=== PATIENT | male | born 1935 | race Caucasian/White ===

== ENCOUNTER 2019-09-15 15:20 | Outpatient (CLI) | payer MEDICARE, SELFPAY ==
[2019-09-15] MEDS: epoetin alfa 40,000 Unit/mL INJ (non-esrd, onc only) 40000 UNIT XX (16:25)
--- NOTE | 2019-09-19 06:38 | ONC FU_ITS ---
Dr. Vaughn Patient Follow-Up Note Patient: Oneil Hinson Unit #: [id number]: [id number] Dicatated By: David Vaughn M.D.Date of Visit:Sep 15, 2019 Onc Med Follow-up/Prog Note Chief Complaint: Chronic myeloid leukemia. History of Present Illness: This is an 84 year-old man with Green chromosome positive chronic myeloid leukemia. The leukemia was initially diagnosed in August 2002. He had a very good response to treatment with imatinib. During followup his quantitative PCR studies for the BCR/abl fusion have remained undetectable. His other medical illnesses have included hypertension and stage IV chronic kidney disease. He has had a mild chronic anemia. The anemia had been responsive to treatment with Procrit, but he eventually was able to maintain an adequate hemoglobin level without it. He also has degenerative disease of the spine, and he underwent lumbar laminectomy for ruptured disc in October 2013. His symptoms initially improved, but then recurred. He underwent reexploration with bilateral L4-L5 hemilaminectomy laminectomy/discectomy/foraminectomy on 07/17/2014. On 04/30/2017 he underwent placement of a spinal cord stimulator, as he continued to have significant back pain. He has continued treatment with imatinib for the CML. As of his follow-up visit on 12/28/2017 he quantitative PCR for BCR/abl remained undetectable. He was seen for a scheduled visit on 03/30/2018. At that point he had been showing some further decline in his activity tolerance. His hemoglobin was down to 9.5 g. I had recommended that he stop the imatinib. His subsequent serum iron studies showed low transferrin saturation at 16% with ferritin in the low normal range at 92 ng/mL. MMA level was normal. He started an oral iron supplement. On 04/13/2018 he was admitted to the hospital for IV hydration in preparation for a lower extremity arterial vascular procedure. His laboratory studies on 04/14/2018 showed creatinine down to 1.5 mg/dL. His hemoglobin, though, had dropped to 7.1 g. The procedure was abandoned, and he returned here for an infusion of Injectafer. He experienced no acute toxicity. However, on 04/16/2018 he presented to the emergency room with shortness of breath. He was found to be in atrial fibrillation. Chest x-ray showed new small bilateral pleural effusions with interval cardiomegaly and/or pericardial effusion. Echocardiogram showed normal left ventricular systolic function with estimated ejection fraction of 55%. There was grade 1/4 diastolic dysfunction. Overall, the findings were felt to be consistent with acute congestive failure. He was treated with IV Lasix and he was transfused 1 unit of PRBC. He was able to be discharged the following day. Several of his other medications were adjusted, including the Coreg and the aspirin. His repeat CBC on 04/18/2018 showed hemoglobin up to 10.5 g with white blood cell count 6400 and platelet count 144,000. He continued on close observation, and he eventually was able to complete the arterial stenting procedure to his right leg. During that time his blood counts remained adequate and his quantitative PCR for the BCR/abl fusion remainded undetectable. 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 I had seen him for a follow-up visit on 12/09/2018. He was still mildly anemic, but it was PCR was undetectable, and he continued on observation/expectant management for the CML. During subsequent follow-up he had remained moderately anemic. As of May 2019 I opted to restart Procrit therapy with his target hemoglobin at 10 g. He has been showing a good response. He is seen for a follow-up visit. His energy has generally been better since he restarted the Procrit, though lately he has been feeling more tired again. His ECOG score is 2. He has good appetite. He has no fever or night sweats. He had developed some blisters on his amputation stump, but those healed after he was fitted with a new boot. He is really been feeling pretty good otherwise. He sometimes has shortness of breath. He has not been having chest pain. He has no GI or complaints other than some urinary frequency. He still has some back pain, though it has been much better with the spinal cord stimuator. He has no focal neurologic symptoms. Medications: AmLODIPine Besylate 10 mg (of 10 mg) Tablet Oral daily, Aspirin 1 (81 mg) Tablet Oral daily, Carvedilol 1 Tablet (of 25 mg) Oral b.i.d., Colace 1 Capsule (of 100 mg) Oral b.i.d., Heartburn Relief 1 Tablet Oral b.i.d., hydrALAZINE HCl 1 Tablet (of 25 mg) Oral t.i.d., Magnesium Oxide 1 (400 mg) Capsule Oral daily, Probiotic 1 Capsule Oral daily, Prochlorperazine Maleate 10 mg (of 10 mg) Tablet Oral four times a day PRN, Rosuvastatin Calcium 1 Tablet (of 10 mg) Oral daily, traMADol HCl 1 Tablet (of 50 mg) Oral PRN, Vitamin B12 1 Tablet Oral daily, Vitamin C 1 Tablet Oral daily, estefany 1 Tablet (of 500 mg) Oral daily Allergies: cortisone and ZOFRAN (ODT). Review of Systems: Constitutional - His energy is starting to dwindle and he is feeling tired. He is up and around at home. His appetite is good and his weight is stable. No fever, chills, hot flashes, or night sweats. ECOG score is 2, ENMT - No sinus congestion/drainage. No mouth sores. No sore throat or difficulty swallowing, Hematologic/Lymphatic - He bruises easily, Respiratory - No shortness of breath. No cough. No pleuritic pain or hemoptysis, Cardiovascular - No angina pain. No palpitations, Gastrointestinal - No nausea or vomiting. No heartburn or acid reflux. No diarrhea or constipation. No blood in the stool or black stools, Genitourinary (M) - No dysuria or hematuria. He has urinary frequency. No urgency or incontinence, Musculoskeletal - No joint or bone pain, Integumentary - He did have blisters on his right lower extremity stump due to his prosthesis. He was fitted for a smaller boot and since then his blisters have healed, Neurologic - No headache or dizziness. No numbness/paresthesias or other focal neurologic symptoms, Psychiatric - No anxiety or depression. No insomnia. Vital Signs: Performed on Sep 15, 2019 15:53 Height - 68.00 in Weight - 162.6 lbs (LOW) BSA - 1.87 sq.m BMI - 24.72 Temperature - 97.2 F (LOW) Pulse - 83 /min Respiration - 20 /min BP - 151/78 mm(hg) (HIGH) O2 Sat - 97 % Pain - 0 Physical Examination: Constitutional - He looks pretty good generally, Eyes - Sclerae nonicteric. Conjunctivae clear, ENMT - No lesions noted in the oral cavity, Hematologic/Lymphatic - No cervical, clavicular, or axillary adenopathy, Respiratory - Lungs sound clear, Cardiovascular - Heart rhythm is irregular. There is a II/ systolic murmur. There is no gallop or rub noted, Abdomen - Soft. Liver and spleen are not enlarged. There is no abdominal mass or ascites noted and there is no inguinal adenopathy, Extremities - No edema. He has had a BK amputation on the right, Neurologic - There are no focal neurologic deficits noted. Lab/Imaging: Test performed on Sep 12, 2019 11:14 Ferritin 213 ng/mL Iron, Total 67 mcg/dL Vitamin B12 2000 pg/mL TIBC 296 mcg/dL Glucose 139 mg/dL LDH, Total 180 IU/L BUN 24 mg/dL Creatinine 1.42 mg/dL Cr Clearance (Est) 42.30 mL/min Sodium 136 mmol/L Potassium 3.9 mmol/L Chloride 104 mmol/L CO2 24.8 mmol/L Calcium 8.9 mg/dL Protein, Total 7.6 g/dL Albumin 4.0 g/dL A/G Ratio 1.1 Absolute Value Bilirubin, Total .4 mg/dL Alkaline Phosphatase 108 IU/L AST (SGOT) 15 IU/L ALT (SGPT) 22 IU/L WBC 6.0 10^9/L RBC 2.92 10^12/L HGB 9.6 g/dL HCT 29.3 % MCV 100.3 fl MCH 32.9 pg MCHC 32.8 g/dL RDW 16.3 % Platelet Count 208 10^9/L MPV 10.4 fL Neutrophils (Gran) 3.65 10^9/L Lymphocytes 1.45 10^9/L Monocytes .74 10^9/L Eosinophils .14 10^9/L Basophils .05 10^9/L Manual Lymphocytes 24.0 % Manual Monocytes 12.2 % Manual Eosinophils 2.3 % Manual Basophils 0.8 % Impression: 1. Patient has a Green chromosome positive chronic myeloid leukemia, initially diagnosed in August 2002. By PCR he has had major molecular response on treatment with imatinib, which he has tolerated well. 2. He has a mild, chronic anemia. It is uncertain to what extent the anemia may be due to treatment or to the chronic kidney disease. It has been stable. His other medical illnesses include: 3. Hypertension. 4. Stage III chronic kidney disease. 5. He has degenerative disease of the spine. He had back surgery twice in 2013. 6. He underwent thoracic laminectomy with placement of spinal cord stimulator on 04/30/2017. His chronic myeloid leukemia has been in long-term remission on treatment with imatinib. He has had mild to moderately severe anemia, which I had assumed to be due to the imatinib. As of his follow-up visit on 03/30/2018 there was further decline in his hemoglobin to 9.4 g. At that point I did have him stop imatinib. His subsequent serum iron studies were suggestive of iron deficiency, and he then started an oral iron supplement. Following IV hydration in preparation for lower extremity arterial vascular procedure, there was a further drop in the hemoglobin to 7.1 g. As it appeared likely that at least some component of the anemia was due to iron deficiency, he was given an infusion of Injectafer. He experienced no acute toxicity with the infusion. However, 2 days later he presented to the emergency room with shortness of breath. He was found to be in atrial fibrillation, and his clinical evaluation was consistent with acute congestive heart failure. He was treated with IV Lasix and he was given a transfusion of 1 unit of PRBC. His blood count had renal function had subsequently stabilized, and he was able to complete the arterial stenting procedure to his right leg. He then had some improvement in his blood count and his renal function and there also was improvement in his clinical status. During subsequent follow-up his PCR for the BCR/abl fusion remained undetectable. 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 During follow-up he has continued to have mild to moderately severe anemia. It is presumed to be due to the chronic kidney disease. He restarted treatment with Procrit in May 2019. He has been showing a good response. He otherwise has been stable clinically. His PCR has remained undetectable. Plan: He remians on observation/expectant management for the CML. His CBC will be monitored monthly and he will continue Procrit as needed for the anemia with his target hemoglobin at 10g. I will see him again in 3 months. Signed By: David Vaughn M.D. <<Signature on File>>
== END 2019-09-15 15:21 | disposition home or self-care (01) ==
LOC: ONCMED 15:24
PROVIDERS: Family Provider Family Medicine; Visit Provider Internal Medicine Medical Oncology
DX: C92.11 Chronic myeloid leukemia, BCR/ABL-positive, in remission (principal); I12.9 Hypertensive chronic kidney disease with stage 1 through stage 4 chronic kidney disease, or unspecified chronic kidney disease; N18.4 Chronic kidney disease, stage 4 (severe); D63.1 Anemia in chronic kidney disease; Z98.1 Arthrodesis status; Z79.82 Long term (current) use of aspirin; Z79.01 Long term (current) use of anticoagulants; Z92.25 Personal history of immunosuppression therapy; Z89.511 Acquired absence of right leg below knee
CPT/HCPCS: 96372; 99214; J0885

== ENCOUNTER 2019-10-19 08:00 | Day surgery (SDC) | payer MEDICARE, SELFPAY ==
[2019-10-19 12:41] VITALS: BMI 24.7
--- NOTE | 2019-10-19 12:55 | ECG_ITS ---
Measurements Intervals Archer Rate: 67 P: NM: 0 QRS: 38 QRSD: 120 T: 53 QT: 440 QTc: 467 ATRIAL FIBRILLATION WITH ABERRANT CONDUCTION OR VENTRICULAR PREMATURE COMPLEXES MODERATE INTRAVENTRICULAR CONDUCTION DELAY [110+ ms QRS DURATION] MINIMAL ST DEPRESSION Compared to ECG 11/02/2018 17:50:36 Ventricular premature complex(es) now present Aberrant conduction of supraventricular beat(s) now present Intraventricular conduction delay now present ST (T wave) deviation now present Sinus rhythm no longer present Incomplete right bundle-branch block no longer present T-wave abnormality no longer present Possible ischemia no longer present Electronically Signed On 10-19-2019 13:20:09 DIRECTOR OF RETAIL OPERATIONS by Jillian Anaya M.D. [id number]
--- NOTE | 2019-10-19 13:21 | ANES.PREANE2 ---
Pre-Anesthetic Assessment Pre-Anesthetic Assessment: Height/Weight: Height 1.73 m Weight 73.936 kg Preop Diagnosis: Chronic pain Proposed Procedure: Operation Date: 10/20/19 14:15 Proposed Procedures p SCS battery Removal 61912/M96.1(Not Applicable) - Jose Armando Mercado MD Familial anesthetic complications: None Was Beta Geronimo taken within 24 hours: N/A Social: Social History: No alcohol and No tobacco Exam: Pre-Anes Outpt Exam: alert, oriented x 3, clear to auscultation bilaterally and regular rate & rhythm Airway: Cervical ROM: WNL MP: 2 Dentition: Full Pulmonary: Pulmonary: None reported CV/HEM: CV/HEM: CHF and Murmur Comments: Patient has a fib and bad heart valve it doesn't close : : Chronic renal Insufficiency Comments: stage III Hepatic: Hepatic: None reported GI: GI: None reported Metabolic: Metabolic: None reported Musc/skel: Musc/skel: None reported Neuropsych: Neuropsych: None reported Anesthetic Plan: ASA status: 4 Anesthesia: MAC Risk of > 500 ml blood loss (7ml/kg in children): No Data Anesthesia Cardiac Studies: No Data to Display
[2019-10-20 12:53] VITALS: BP 155/75; PULSE 77; RESP 18; TEMP 36.2; O2SAT 95
[2019-10-20] MEDS: sodium chloride 0.9% 1,000 ML 30 ML IV (13:08)
--- NOTE | 2019-10-20 15:35 | W.PM.OPSUD ---
Surgery/Procedure H&P Update DATE OF PROCEDURE: October 20, 2019 DATE H&P PERFORMED: 10/12/19 H&P UPDATE INFORMATION: I have reviewed H&P completed within last 30 days and H&P to be scanned into chart PREOP DIAGNOSIS: Lumbar postlaminectomy syndrome PRIMARY INDICATION FOR PROCEDURE: Generator site pain PLANNED PROCEDURE: Operation Date: 10/20/19 14:15 Proposed Procedures SCS pulse generator removal 54366/M96.1(Not Applicable) - Jose Armando Mercado MD
--- NOTE | 2019-10-20 15:57 | PM.OP2 ---
 Brief Operative Note: Date of procedure: 10/20/19 Pre-op diagnosis: Lumbar postlaminectomy syndrome Post-op diagnosis: same Procedure Done: Removal of subcutaneous programmable pulse generator Surgeon: Jose Armando Mercado Estimated blood loss (mL): 5 Complications: None Post-op Plan: Home per Ambulatory Surgery protocol Condition: stable Disposition: same day Coding Level of Care Code Acute Ethylbenzene Converter Helper for Tova Cordero
[2019-10-20 16:58] VITALS: BP 153/89; PULSE 82; RESP 18; TEMP 36.3
[2019-10-20 16:59] VITALS: BP 155/74; PULSE 82; RESP 18
--- NOTE | 2019-10-21 11:32 | PM.OP ---
Operative Report Date of procedure: October 20, 2019 Pre-op Diagnosis: Lumbar postlaminectomy syndrome Post-op diagnosis: same Procedure Done: Removal of subcutaneous programmable pulse generator. Specimens removed/disposition: [employer] pulse generator Pathology: other (Stimulator to pathology for gross evaluation only) Surgeon: Jose Armando Mercado Anesthesia: MAC Estimated blood loss (mL): 10 IV fluids (mL): 100 Complications: None Condition: stable Disposition: same day Brief History: The patient is an 84-year-old male with multiple medical issues who had previously undergone a thoracic spinal cord stimulator implantation for management of chronic pain. He carries a diagnosis of lumbar postlaminectomy syndrome. The device was initially beneficial, but use/efficacy of the device diminished over time. He underwent a lower extremity amputation and began to notice pain/irritation at the spinal cord stimulator pulse generator site. After review of the diagnostic and treatment options with the risks/potential benefits/rationale for each, the patient requested to proceed with pulse generator removal in hopes of resolving the generator site pain. Preoperative medical evaluation was obtained. The patient was felt to be of elevated risk, but likely to tolerate the brief procedure if done without general anesthesia. Procedure: After routine preoperative evaluation and informed consent were obtained, the patient was taken to the Operating Room and positioned prone on the operating table. Chest and pelvic bolsters were positioned to ensure the abdomen was decompressed. All pressure points were padded. The patient reported the position to be comfortable. He was maintained under intravenous sedation by Anesthesia personnel. The prior left flank pulse generator placement incision was marked with a skin marker. The posterior thorax/flank area was scrubbed with Betadine and prepped with DuraPrep. Sterile towels and drapes were applied, and an [place] surgical barrier was placed. The proposed left flank incision was infiltrated with 1% Xylocaine with epinephrine. A skin incision was made and carried down into the subcutaneous tissues. The fibrous capsule containing the pulse generator was opened. No abnormal fluid collections were demonstrated. The pulse generator was delivered from the subcutaneous space. The lead - pulse generator interfaces were intact. Setscrews were released and the lead tails were delivered from the ports on the pulse generator. The generator was sent to pathology for gross evaluation. The wound was copiously irrigated with sterile saline and antibiotic areas irrigation. The lead tails were coiled within the subcutaneous space. Hemostasis was ensured with the bipolar electrocautery. Wound closure was performed in multiple layers with 2-0 Vicryl Plus simple operative closure of the scar capsule and deep dermis. Final skin closure was obtained with running subcuticular 3-0 Vicryl Plus. Steri-Strips were applied, and a sterile dressing was placed. He tolerated the procedure well. All sponge, needle and instrument counts were correct at the completion of the procedure.
== END 2019-10-19 09:00 | disposition home or self-care (01) ==
LOC: OR 04-17 12:47
PROVIDERS: PCP Family Medicine; Visit Provider Specialist
PROC: (CPT 63688; principal; 2019-10-20 14:15)
DX: M96.1 Postlaminectomy syndrome, not elsewhere classified (principal); T85.840A Pain due to nervous system prosthetic devices, implants and grafts, initial encounter; Y83.8 Other surgical procedures as the cause of abnormal reaction of the patient, or of later complication, without mention of misadventure at the time of the procedure; N18.3 Chronic kidney disease, stage 3 (moderate)
CPT/HCPCS: 63688; 12345; 88300; 93005; J0690; J2001; J2704; J3490; J7030

== ENCOUNTER 2019-10-19 15:23 | Outpatient (CLI) | payer MEDICARE, SELFPAY ==
[2019-10-19] MEDS: epoetin alfa 40,000 Unit/mL INJ (non-esrd, onc only) 40000 UNIT SUBCUT (16:07)
== END 2019-10-19 15:24 | disposition home or self-care (01) ==
LOC: ONCMED 15:28
PROVIDERS: Family Provider Family Medicine; PCP Family Medicine; Visit Provider Internal Medicine Medical Oncology
DX: D63.1 Anemia in chronic kidney disease (principal); N18.3 Chronic kidney disease, stage 3 (moderate); C92.11 Chronic myeloid leukemia, BCR/ABL-positive, in remission
CPT/HCPCS: 96372; J0885

== ENCOUNTER 2019-11-25 07:54 | Outpatient (RCR) | payer MEDICARE, SELFPAY ==
[2019-11-17 14:48] LABS: Basophils % 0.5 %; Eosinophils # 0.3 10^3/uL (0.0-0.8); Eosinophils % 4.4 %; Hematocrit 27.9 % (42.0-52.0); Hemoglobin 8.9 g/dL (11.7-16.6); Lymphocytes # 0.9 10^3/uL (0.8-4.8); Lymphocytes % 11.7 %; Mean Corpuscular HGB Conc 31.9 g/dL (30.0-36.0); Mean Corpuscular Volume 106.5 fL (80-94); Mean Platelet Volume 10.8 fL (7.4-10.4); Monocytes # 0.9 10^3/uL (0.2-0.9); Monocytes % 11.6 %; Neutrophils # 5.2 10^3/uL (1.8-7.7); Neutrophils % 71.4 %; Nucleated Red Blood Cells % 0 %; Platelet Count 236 10^3/cmm (130-400); Red Blood Count 2.62 10^6/uL (4.1-5.3); Red Cell Distribution Width 15.2 % (12.1-15.1); White Blood Count 7.3 10^3/uL (4.0-10.0)
[2019-11-18] MEDS: epoetin alfa 40,000 Unit/mL INJ (non-esrd, onc only) 40000 UNIT SUBCUT (09:54)
[2019-11-24 10:35] LABS: Basophils % 0.7 %; Eosinophils # 0.3 10^3/uL (0.0-0.8); Eosinophils % 5.6 %; Hematocrit 26.4 % (42.0-52.0); Hemoglobin 8.6 g/dL (11.7-16.6); Mean Corpuscular HGB Conc 32.6 g/dL (30.0-36.0); Mean Corpuscular Hemoglobin 34.4 pg (28.0-34.0); Mean Corpuscular Volume 105.6 fL (80-94); Mean Platelet Volume 10.5 fL (7.4-10.4); Monocytes # 0.9 10^3/uL (0.2-0.9); Monocytes % 14.1 %; Neutrophils # 3.9 10^3/uL (1.8-7.7); Neutrophils % 63.3 %; Nucleated Red Blood Cells % 0 %; Platelet Count 220 10^3/cmm (130-400); Red Cell Distribution Width 15.5 % (12.1-15.1); White Blood Count 6.1 10^3/uL (4.0-10.0)
[2019-11-25] MEDS: diphenhydrAMINE 25 mg Capsule PO (09:10)
[2019-11-25] MEDS: acetaminophen 325 mg Tablet 650 MG PO (09:10)
[2019-11-25 09:11] VITALS: BP 145/58; PULSE 72; RESP 16; TEMP 36.8; O2SAT 97
[2019-11-25 09:26] VITALS: BP 123/59; PULSE 71; RESP 16; TEMP 36.6; O2SAT 94
[2019-11-25] MEDS: prochlorperazine 10 mg Tablet PO (09:29)
[2019-11-25 09:41] VITALS: BP 132/57; PULSE 64; RESP 16; TEMP 36.8; O2SAT 96
[2019-11-25 10:13] VITALS: BP 121/62; PULSE 70; RESP 16; TEMP 36.6; O2SAT 97
[2019-11-25 10:35] VITALS: BP 165/69; PULSE 72; RESP 16; TEMP 36.4; O2SAT 97
[2019-11-25] MEDS: epoetin alfa 40,000 Unit/mL INJ (non-esrd, onc only) 40000 UNIT SUBCUT (11:00)
== END 2019-11-29 23:59 | disposition home or self-care (01) ==
LOC: ONCMED 07:54
PROVIDERS: Nurse Practitioner; Family Provider Family Medicine; PCP Family Medicine; Visit Provider Internal Medicine Medical Oncology
DX: C92.11 Chronic myeloid leukemia, BCR/ABL-positive, in remission (principal); N18.9 Chronic kidney disease, unspecified; D63.1 Anemia in chronic kidney disease; R53.83 Other fatigue; R53.1 Weakness; R06.02 Shortness of breath
CPT/HCPCS: 36430; 85025; 86850; 86900; 86920; 96372; J0885; P9040; Q0164

== ENCOUNTER 2019-12-29 15:25 | Outpatient (RCR) | payer MEDICARE, SELFPAY ==
[2019-12-01 14:51] LABS: Basophils % 0.6 %; Eosinophils # 0.3 10^3/uL (0.0-0.8); Eosinophils % 4.9 %; Hematocrit 32.4 % (42.0-52.0); Hemoglobin 10.3 g/dL (11.7-16.6); Lymphocytes # 1.2 10^3/uL (0.8-4.8); Lymphocytes % 17.8 %; Mean Corpuscular HGB Conc 31.8 g/dL (30.0-36.0); Mean Corpuscular Hemoglobin 33.6 pg (28.0-34.0); Mean Corpuscular Volume 105.5 fL (80-94); Mean Platelet Volume 10.9 fL (7.4-10.4); Monocytes # 0.8 10^3/uL (0.2-0.9); Monocytes % 12.3 %; Neutrophils # 4.3 10^3/uL (1.8-7.7); Neutrophils % 64.3 %; Nucleated Red Blood Cells % 0 %; Platelet Count 233 10^3/cmm (130-400); Red Blood Count 3.07 10^6/uL (4.1-5.3); Red Cell Distribution Width 16.6 % (12.1-15.1); White Blood Count 6.7 10^3/uL (4.0-10.0)
[2019-12-08 09:48] LABS: Basophils # 0.1 10^3/uL (0.0-0.1); Basophils % 1.3 %; Eosinophils # 0.3 10^3/uL (0.0-0.8); Eosinophils % 5.2 %; Hematocrit 33.1 % (42.0-52.0); Hemoglobin 10.6 g/dL (11.7-16.6); Lymphocytes # 0.9 10^3/uL (0.8-4.8); Lymphocytes % 16.3 %; Mean Corpuscular Hemoglobin 32.4 pg (28.0-34.0); Mean Corpuscular Volume 101.2 fL (80-94); Mean Platelet Volume 10.6 fL (7.4-10.4); Monocytes # 0.7 10^3/uL (0.2-0.9); Monocytes % 12.2 %; Neutrophils # 3.5 10^3/uL (1.8-7.7); Neutrophils % 64.8 %; Nucleated Red Blood Cells % 0 %; Platelet Count 233 10^3/cmm (130-400); Red Blood Count 3.27 10^6/uL (4.1-5.3); Red Cell Distribution Width 15.9 % (12.1-15.1); White Blood Count 5.4 10^3/uL (4.0-10.0)
[2019-12-15 10:35] LABS: Basophils # 0.1 10^3/uL (0.0-0.1); Eosinophils # 0.3 10^3/uL (0.0-0.8); Eosinophils % 5.4 %; Hematocrit 30.3 % (42.0-52.0); Hemoglobin 9.8 g/dL (11.7-16.6); Lymphocytes # 1.2 10^3/uL (0.8-4.8); Lymphocytes % 19.8 %; Mean Corpuscular HGB Conc 32.3 g/dL (30.0-36.0); Mean Corpuscular Hemoglobin 33.2 pg (28.0-34.0); Mean Corpuscular Volume 102.7 fL (80-94); Mean Platelet Volume 10.9 fL (7.4-10.4); Monocytes # 0.8 10^3/uL (0.2-0.9); Monocytes % 12.6 %; Neutrophils # 3.6 10^3/uL (1.8-7.7); Nucleated Red Blood Cells % 0 %; Platelet Count 220 10^3/cmm (130-400); Red Blood Count 2.95 10^6/uL (4.1-5.3); Red Cell Distribution Width 15.7 % (12.1-15.1)
[2019-12-15 10:47] LABS: Alanine Aminotransferase 14 U/L (0-41); Albumin Level 4.1 g/dL (3.5-5.2); Alkaline Phosphatase 101 IU/L (40-130); Anion Gap 18.2 (5-19); Aspartate Amino Transferase 22 U/L (0-40); Blood Urea Nitrogen 22 mg/dL (8-23); Calcium 9.7 mg/dL (8.5-10.5); Carbon Dioxide 22 mmol/L (22-29); Chloride 96 mmol/L (98-107); Globulin 2.8 g/dL (1.3-4.6); Glucose 228 mg/dL (65-115); Lactate Dehydrogenase 199 U/L (135-225); Osmolality Calculated 278 mOsm/kg (285-295); Potassium 4.2 mmol/L (3.5-5.1); Sodium 132 mmol/L (136-145); Total Bilirubin 0.4 mg/dL (0.15-1.2); Total Protein 6.9 g/dL (6.6-8.7)
[2019-12-20 17:47] LABS: P190 BCR ALB1 Not Detected; P210 BCR ALB1 Not Detected; Prior Results See Report
[2019-12-22 15:02] LABS: Basophils % 0.5 %; Eosinophils # 0.4 10^3/uL (0.0-0.8); Eosinophils % 6.5 %; Hematocrit 31.5 % (42.0-52.0); Hemoglobin 10.3 g/dL (11.7-16.6); Lymphocytes % 17.4 %; Mean Corpuscular HGB Conc 32.7 g/dL (30.0-36.0); Mean Corpuscular Hemoglobin 33.8 pg (28.0-34.0); Mean Corpuscular Volume 103.3 fL (80-94); Mean Platelet Volume 10.8 fL (7.4-10.4); Monocytes # 0.6 10^3/uL (0.2-0.9); Monocytes % 10.2 %; Neutrophils # 3.9 10^3/uL (1.8-7.7); Neutrophils % 65.1 %; Nucleated Red Blood Cells % 0 %; Platelet Count 208 10^3/cmm (130-400); Red Blood Count 3.05 10^6/uL (4.1-5.3); Red Cell Distribution Width 15.6 % (12.1-15.1)
[2019-12-29 17:58] LABS: Basophils # 0.1 10^3/uL (0.0-0.1); Eosinophils # 0.3 10^3/uL (0.0-0.8); Eosinophils % 4.2 %; Hematocrit 29.6 % (42.0-52.0); Hemoglobin 9.4 g/dL (11.7-16.6); Lymphocytes # 1.6 10^3/uL (0.8-4.8); Lymphocytes % 22.4 %; Mean Corpuscular HGB Conc 31.8 g/dL (30.0-36.0); Mean Corpuscular Hemoglobin 32.2 pg (28.0-34.0); Mean Corpuscular Volume 101.4 fL (80-94); Monocytes # 0.9 10^3/uL (0.2-0.9); Monocytes % 12.5 %; Neutrophils # 4.3 10^3/uL (1.8-7.7); Neutrophils % 59.6 %; Nucleated Red Blood Cells % 0 %; Platelet Count 204 10^3/cmm (130-400); Red Blood Count 2.92 10^6/uL (4.1-5.3); Red Cell Distribution Width 15.5 % (12.1-15.1); White Blood Count 7.2 10^3/uL (4.0-10.0)
== END 2019-12-29 23:59 | disposition home or self-care (01) ==
LOC: ONCMED 15:25
PROVIDERS: Family Provider Family Medicine; PCP Family Medicine; Visit Provider Internal Medicine Medical Oncology
DX: C92.11 Chronic myeloid leukemia, BCR/ABL-positive, in remission (principal); D64.9 Anemia, unspecified
CPT/HCPCS: 36415; 80053; 81206; 83615; 85025

== ENCOUNTER 2020-01-06 08:29 | Outpatient (RCR) | payer MEDICARE, SELFPAY ==
[2019-12-30] MEDS: epoetin alfa 40,000 Unit/mL INJ (non-esrd, onc only) 40000 UNIT SUBCUT (10:20)
[2020-01-05 11:01] LABS: Basophils # 0.1 10^3/uL (0.0-0.1); Basophils % 0.9 %; Eosinophils # 0.3 10^3/uL (0.0-0.8); Eosinophils % 3.7 %; Hematocrit 29.3 % (42.0-52.0); Hemoglobin 9.4 g/dL (11.7-16.6); Lymphocytes # 1.2 10^3/uL (0.8-4.8); Lymphocytes % 17.2 %; Mean Corpuscular HGB Conc 32.1 g/dL (30.0-36.0); Mean Corpuscular Hemoglobin 33.1 pg (28.0-34.0); Mean Corpuscular Volume 103.2 fL (80-94); Mean Platelet Volume 10.8 fL (7.4-10.4); Monocytes # 0.8 10^3/uL (0.2-0.9); Monocytes % 11.3 %; Neutrophils # 4.5 10^3/uL (1.8-7.7); Neutrophils % 66.8 %; Nucleated Red Blood Cells % 0 %; Platelet Count 220 10^3/cmm (130-400); Red Blood Count 2.84 10^6/uL (4.1-5.3); Red Cell Distribution Width 16.5 % (12.1-15.1); White Blood Count 6.8 10^3/uL (4.0-10.0)
[2020-01-06] MEDS: epoetin alfa 40,000 Unit/mL INJ (non-esrd, onc only) 40000 UNIT SUBCUT (12:50)
--- NOTE | 2020-01-07 20:50 | ONC FU_ITS ---
Dr. Vaughn Patient Follow-Up Note Patient: Oneil Hinson Unit #: [id number]: 1935 Dicatated By: David Vaughn M.D.Date of Visit:January 06, 2020 Onc Med Follow-up/Prog Note Chief Complaint: Chronic myeloid leukemia. History of Present Illness: This is an 84 year-old man with Chambers chromosome positive chronic myeloid leukemia. The leukemia was initially diagnosed in August 2002. He had a very good response to treatment with imatinib. During followup his quantitative PCR studies for the BCR/abl fusion had remained undetectable, and he stopped the imatinib as of February 2018. His other medical illnesses have included hypertension, stage IV chronic kidney disease, and peripheral arterial disease. He has had a mild chronic anemia. In the past the anemia had been responsive to treatment with Procrit, but he eventually had been able to maintain an adequate hemoglobin level without it. He also has degenerative disease of the spine, and he underwent lumbar laminectomy for ruptured disc in October 2013. His symptoms initially improved, but then recurred. He underwent reexploration with bilateral L4-L5 hemilaminectomy laminectomy/discectomy/foraminectomy on 07/17/2014. On 04/30/2017 he underwent placement of a spinal cord stimulator, as he continued to have significant back pain. As of his follow-up visit on 12/28/2017 the quantitative PCR for BCR/abl remained undetectable. He was seen for a scheduled visit on 03/30/2018. At that point he had been showing some further decline in his activity tolerance. His hemoglobin was down to 9.5 g. I had recommended that he stop the imatinib. His subsequent serum iron studies showed low transferrin saturation at 16% with ferritin in the low normal range at 92 ng/mL. MMA level was normal. He started an oral iron supplement. On 04/13/2018 he was admitted to the hospital for IV hydration in preparation for a lower extremity arterial vascular procedure. His laboratory studies on 04/14/2018 showed creatinine down to 1.5 mg/dL. His hemoglobin, though, had dropped to 7.1 g. The procedure was abandoned, and he returned here for an infusion of Injectafer. He experienced no acute toxicity. However, on 04/16/2018 he presented to the emergency room with shortness of breath. He was found to be in atrial fibrillation. Chest x-ray showed new small bilateral pleural effusions with interval cardiomegaly and/or pericardial effusion. Echocardiogram showed normal left ventricular systolic function with estimated ejection fraction of 55%. There was grade 1/4 diastolic dysfunction. Overall, the findings were felt to be consistent with acute congestive failure. He was treated with IV Lasix and he was transfused 1 unit of PRBC. He was able to be discharged the following day. Several of his other medications were adjusted, including the Coreg and the aspirin. His repeat CBC on 04/18/2018 showed hemoglobin up to 10.5 g with white blood cell count 6400 and platelet count 144,000. He continued on close observation, and he eventually was able to complete the arterial stenting procedure to his right leg. During that time his blood counts remained adequate and his quantitative PCR for the BCR/abl fusion remainded undetectable. 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 I had seen him for a follow-up visit on 12/09/2018. He was still mildly anemic, but it was PCR was undetectable, and he continued on observation/expectant management for the CML. During subsequent follow-up he had remained moderately anemic. As of May 2019 I opted to restart Procrit therapy with his target hemoglobin at 10 g. He has had a good response. As of November 2019 the PCR for BCR/abl remained undetectable. He is seen for a follow-up visit. He has continued to have limited activity. His ECOG score is 2. He has good appetite. He has not had fever or night sweats. Lately he has been having ongoing problems with swelling in his left leg. He had started furosemide about a month ago when he was having more shortness of breath. His diuretic recently was changed to spironolactone. His breathing did improve somewhat with the furosemide. He has not had chest pain. He has no GI/ complaints other than occasional heartburn. He is having some pain in his left leg. He sometimes has lightheadedness. He has no focal neurologic symptoms. Medications: AmLODIPine Besylate 10 mg (of 10 mg) Tablet Oral daily, Aspirin 1 (81 mg) Tablet Oral daily, Carvedilol 1 Tablet (of 25 mg) Oral b.i.d., Colace 1 Capsule (of 100 mg) Oral b.i.d., Heartburn Relief 1 Tablet Oral b.i.d., hydrALAZINE HCl 1 Tablet (of 25 mg) Oral t.i.d., Magnesium Oxide 1 (400 mg) Capsule Oral daily, Multivitamin Adult 1 Tablet Oral daily, Probiotic 1 Capsule Oral daily, Prochlorperazine Maleate 10 mg (of 10 mg) Tablet Oral four times a day PRN, Rosuvastatin Calcium 1 Tablet (of 10 mg) Oral daily, Spironolactone 0.5 Tablet (of 25 mg) Oral b.i.d., Vitamin B12 1 Tablet Oral daily, Vitamin C 1 Tablet Oral daily, estefany 1 Tablet (of 500 mg) Oral daily Allergies: cortisone and ZOFRAN (ODT). Review of Systems: Constitutional - He is feeling okay, though his energy level is low. He is not doing much at home. He uses a cane to ambulate. His appetite is good and weight is up about 5 pounds from August visit. No fever, chills, hot flashes, or night sweats. ECOG score is 2, ENMT - He has seasonal allergies. No mouth sores. No sore throat or difficulty swallowing. He wears hearing aids, Hematologic/Lymphatic - No abnormal bruising or bleeding, Respiratory - He was having increase in shortness of breath about one month and was placed on Lasix. No cough. No pleuritic pain or hemoptysis, Cardiovascular - No angina pain. No palpitations, Gastrointestinal - No nausea or vomiting. He has occasional heartburn depending on what he eats. No diarrhea or constipation. No blood in the stool or black stools, Genitourinary (M) - No dysuria or hematuria. He has urinary frequency both day and night. No urgency or incontinence, Musculoskeletal - He has pain in his legs, which he manages with tramadol, Integumentary - He is having swelling in his left leg, Neurologic - No headache. He is having lightheadedness. No numbness/paresthesias or other focal neurologic symptoms, Psychiatric - No anxiety or depression. He does not sleep well. Vital Signs: Performed on January 06, 2020 12:21 Height - 68.00 in Weight - 167.2 lbs (HIGH) BSA - 1.89 sq.m BMI - 25.42 Temperature - 97.9 F (LOW) Pulse - 77 /min Respiration - 22 /min BP - 170/70 mm(hg) (HIGH) O2 Sat - 97 % Pain - 0 Physical Examination: Constitutional - He looks pretty good generally, Eyes - Sclerae nonicteric. Conjunctivae clear, ENMT - No lesions noted in the oral cavity, Hematologic/Lymphatic - No cervical, clavicular, or axillary adenopathy, Respiratory - Lungs sound clear, Cardiovascular - Heart rhythm is irregular. There is a II/ systolic murmur. There is no gallop or rub noted, Abdomen - Soft. Liver and spleen are not enlarged. 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 There is 2+ edema of the left leg, fairly tense. He has a palpable dorsalis pedis pulse on the left, and the left foot is warm to touch, Neurologic - There are no focal neurologic deficits noted. Lab/Imaging: Test performed on January 05, 2020 08:40 WBC 6.8 10 3/uL RBC 2.84 10 6/uL HGB 9.4 g/dL HCT 29.3 % MCV 103.2 fL MCH 33.1 pg MCHC 32.1 g/dL RDW 16.5 % Platelet Count 220 10 3/cmm MPV 10.8 fL Neutrophils 4.5 10 3/uL Lymphocytes 1.2 10 3/uL Monocytes 0.8 10 3/uL Eosinophils 0.3 10 3/uL Basophils 0.1 10 3/uL Neutrophil % 66.8 % Lymphocyte % 17.2 % Monocyte % 11.3 % Eosinophil % 3.7 % Basophils % 0.9 % Impression: 1. Patient has a Chambers chromosome positive chronic myeloid leukemia, initially diagnosed in August 2002. By PCR he had major molecular response on treatment with imatinib, which he had tolerated well. 2. He has a mild, chronic anemia. It is uncertain to what extent the anemia may be due to treatment or to the chronic kidney disease. It has been stable. His other medical illnesses include: 3. Hypertension. 4. Stage III chronic kidney disease. 5. He has degenerative disease of the spine. He had back surgery twice in 2013. 6. He underwent thoracic laminectomy with placement of spinal cord stimulator on 04/30/2017. His chronic myeloid leukemia has been in long-term remission on treatment with imatinib. He has had mild to moderately severe anemia, which I had assumed to be due to the imatinib. As of his follow-up visit on 03/30/2018 there was further decline in his hemoglobin to 9.4 g. At that point I did have him stop imatinib. His subsequent serum iron studies were suggestive of iron deficiency, and he then started an oral iron supplement. Following IV hydration in preparation for lower extremity arterial vascular procedure, there was a further drop in the hemoglobin to 7.1 g. As it appeared likely that at least some component of the anemia was due to iron deficiency, he was given an infusion of Injectafer. He experienced no acute toxicity with the infusion. However, 2 days later he presented to the emergency room with shortness of breath. He was found to be in atrial fibrillation, and his clinical evaluation was consistent with acute congestive heart failure. He was treated with IV Lasix and he was given a transfusion of 1 unit of PRBC. His blood count had renal function had subsequently stabilized, and he was able to complete the arterial stenting procedure to his right leg. He then had some improvement in his blood count and his renal function and there also was improvement in his clinical status. During subsequent follow-up his PCR for the BCR/abl fusion remained undetectable. 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 During follow-up he has continued to have mild to moderately severe anemia. It is presumed to be due to the chronic kidney disease. He restarted treatment with Procrit in May 2019. He has been showing a good response. His PCR has remained undetectable. However, he has had ongoing problems related to his vascular disease and congestive heart failure, and the recently has been having persistent swelling in the left leg. He continues have very limited activity. Plan: He remians on observation/expectant management for the CML. His CBC will be monitored weekly and he will continue Procrit as needed for the anemia with his target hemoglobin at 10g. I will see him again in 3 months. Signed By: David Vaughn M.D. <<Signature on File>>
== END 2020-01-29 23:59 | disposition home or self-care (01) ==
LOC: ONCMED 08:29
PROVIDERS: Internal Medicine Hematology & Oncology; PCP Family Medicine; Visit Provider Internal Medicine Medical Oncology
DX: C92.11 Chronic myeloid leukemia, BCR/ABL-positive, in remission (principal); D63.1 Anemia in chronic kidney disease; N18.3 Chronic kidney disease, stage 3 (moderate); I10 Essential (primary) hypertension; E78.5 Hyperlipidemia, unspecified; M47.9 Spondylosis, unspecified; Z79.899 Other long term (current) drug therapy
CPT/HCPCS: 85025; 96372; 99214; J0885

== ENCOUNTER 2020-02-16 13:43 | Outpatient (RCR) | payer MEDICARE, SELFPAY ==
[2020-02-16] MEDS: epoetin alfa 40,000 Unit/mL INJ (non-esrd, onc only) 40000 UNIT SUBCUT (14:31)
== END 2020-02-28 23:59 | disposition home or self-care (01) ==
LOC: ONCMED 13:43
PROVIDERS: PCP Family Medicine; Visit Provider Internal Medicine Medical Oncology
DX: C92.11 Chronic myeloid leukemia, BCR/ABL-positive, in remission (principal); N18.9 Chronic kidney disease, unspecified; D63.1 Anemia in chronic kidney disease
CPT/HCPCS: 96372; J0885

== ENCOUNTER 2020-03-22 06:50 | Outpatient (RCR) | payer MEDICARE, SELFPAY ==
[2020-03-22 13:35] LABS: Basophils # 0.1 10^3/uL (0.0-0.1); Basophils % 0.9 %; Eosinophils # 0.3 10^3/uL (0.0-0.8); Eosinophils % 3.3 %; Hematocrit 33.3 % (42.0-52.0); Hemoglobin 11.3 g/dL (11.7-16.6); Lymphocytes # 1.9 10^3/uL (0.8-4.8); Lymphocytes % 24.4 %; Mean Corpuscular HGB Conc 33.9 g/dL (30.0-36.0); Mean Corpuscular Volume 103.1 fL (80-94); Mean Platelet Volume 10.1 fL (7.4-10.4); Monocytes # 0.8 10^3/uL (0.2-0.9); Monocytes % 9.8 %; Neutrophils # 4.76 10^3/uL (1.8-7.7); Neutrophils % 60.8 %; Nucleated Red Blood Cells % 0 %; Platelet Count 249 10^3/cmm (130-400); Red Blood Count 3.23 10^6/uL (4.1-5.3); White Blood Count 7.8 10^3/uL (4.0-10.0)
[2020-03-22 13:44] LABS: Alanine Aminotransferase 22 U/L (0-41); Albumin Level 4.6 g/dL (3.5-5.2); Alkaline Phosphatase 106 IU/L (40-130); Anion Gap 17.6 (5-19); Aspartate Amino Transferase 23 U/L (0-40); Blood Urea Nitrogen 40 mg/dL (8-23); Calcium 9.7 mg/dL (8.5-10.5); Carbon Dioxide 21 mmol/L (22-29); Chloride 92 mmol/L (98-107); Globulin 3.1 g/dL (1.3-4.6); Glucose 147 mg/dL (65-115); Lactate Dehydrogenase 176 U/L (135-225); Osmolality Calculated 262 mOsm/kg (285-295); Potassium 4.6 mmol/L (3.5-5.1); Sodium 126 mmol/L (136-145); Total Bilirubin 0.2 mg/dL (0.15-1.2); Total Protein 7.7 g/dL (6.6-8.7)
--- NOTE | 2020-03-22 20:23 | ONC FU_ITS ---
Dr. Vaughn Patient Follow-Up Note Patient: Oneil Hinson Unit #: [id number]: [id number] Dicatated By: David Vaughn M.D.Date of Visit:Mar 22, 2020 Onc Med Follow-up/Prog Note Chief Complaint: Chronic myeloid leukemia. History of Present Illness: This is an 85 year-old man with Tuckerman chromosome positive chronic myeloid leukemia. The leukemia was initially diagnosed in August 2002. He had a very good response to treatment with imatinib. During followup his quantitative PCR studies for the BCR/abl fusion had remained undetectable, and he stopped the imatinib as of February 2018. His other medical illnesses have included hypertension, stage IV chronic kidney disease, and peripheral arterial disease. He has had a mild chronic anemia. In the past the anemia had been responsive to treatment with Procrit, but he eventually had been able to maintain an adequate hemoglobin level without it. He also has degenerative disease of the spine, and he underwent lumbar laminectomy for ruptured disc in October 2013. His symptoms initially improved, but then recurred. He underwent reexploration with bilateral L4-L5 hemilaminectomy laminectomy/discectomy/foraminectomy on 07/17/2014. On 04/30/2017 he underwent placement of a spinal cord stimulator, as he continued to have significant back pain. As of his follow-up visit on 12/28/2017 the quantitative PCR for BCR/abl remained undetectable. He was seen for a scheduled visit on 03/30/2018. At that point he had been showing some further decline in his activity tolerance. His hemoglobin was down to 9.5 g. I had recommended that he stop the imatinib. His subsequent serum iron studies showed low transferrin saturation at 16% with ferritin in the low normal range at 92 ng/mL. MMA level was normal. He started an oral iron supplement. On 04/13/2018 he was admitted to the hospital for IV hydration in preparation for a lower extremity arterial vascular procedure. His laboratory studies on 04/14/2018 showed creatinine down to 1.5 mg/dL. His hemoglobin, though, had dropped to 7.1 g. The procedure was abandoned, and he returned here for an infusion of Injectafer. He experienced no acute toxicity. However, on 04/16/2018 he presented to the emergency room with shortness of breath. He was found to be in atrial fibrillation. Chest x-ray showed new small bilateral pleural effusions with interval cardiomegaly and/or pericardial effusion. Echocardiogram showed normal left ventricular systolic function with estimated ejection fraction of 55%. There was grade 1/4 diastolic dysfunction. Overall, the findings were felt to be consistent with acute congestive failure. He was treated with IV Lasix and he was transfused 1 unit of PRBC. He was able to be discharged the following day. Several of his other medications were adjusted, including the Coreg and the aspirin. His repeat CBC on 04/18/2018 showed hemoglobin up to 10.5 g with white blood cell count 6400 and platelet count 144,000. He continued on close observation, and he eventually was able to complete the arterial stenting procedure to his right leg. During that time his blood counts remained adequate and his quantitative PCR for the BCR/abl fusion remainded undetectable. 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 I had seen him for a follow-up visit on 12/09/2018. He was still mildly anemic, but it was PCR was undetectable, and he continued on observation/expectant management for the CML. During subsequent follow-up he had remained moderately anemic. As of May 2019 I opted to restart Procrit therapy with his target hemoglobin at 10 g. He has had a good response. As of November 2019 the PCR for BCR/abl remained undetectable. He is seen for a follow-up visit. He has been feeling pretty good generally. His energy is pretty fair. He is up and around and he is able to do a little bit of light work. ECOG score is 2. He has good appetite. He has no fever or night sweats. He is sometimes short of breath, and recently he had increased swelling. It has improved with a diuretic. He has not been having chest pain. He was evaluated with a stress test yesterday. He has no GI or complaints other than some occasional heartburn. He has aching pain in his legs. He has no focal neurologic symptoms. Medications: AmLODIPine Besylate 10 mg (of 10 mg) Tablet Oral daily, Aspirin 1 (81 mg) Tablet Oral daily, Carvedilol 1 Tablet (of 25 mg) Oral b.i.d., Heartburn Relief 1 Tablet Oral b.i.d., hydrALAZINE HCl 1 Tablet (of 25 mg) Oral t.i.d., Multivitamin Adult 1 Tablet Oral daily, Probiotic 1 Capsule Oral daily, Prochlorperazine Maleate 10 mg (of 10 mg) Tablet Oral four times a day PRN, Rosuvastatin Calcium 1 Tablet (of 10 mg) Oral daily, Vitamin B12 1 Tablet Oral daily, Vitamin C 1 Tablet Oral daily, estefany 1 Tablet (of 500 mg) Oral daily Allergies: cortisone and ZOFRAN (ODT). Review of Systems: Constitutional - He has been feeling pretty fair. His energy is better. He is up and around and able to do a little bit of light work. His appetite is good and weight is down about 7 pounds from last visit. No fever, night sweats, or hot flashes. ECOG score is 2, ENMT - No sinus congestion/drainage. No mouth sores. No sore throat or difficulty swallowing, Hematologic/Lymphatic - No abnormal bruising or bleeding, Respiratory - He has been having increased shortness of breath. No cough. No pleuritic pain or hemoptysis, Cardiovascular - No angina pain. No palpitations, Gastrointestinal - No nausea or vomiting. He has occasional heartburn. No diarrhea or constipation. No blood in the stool or black stools, Genitourinary (M) - No dysuria or hematuria. No urinary frequency. No urgency or incontinence, Musculoskeletal - He has pain in his legs,described this as an aching pain, Integumentary - No skin complications, Neurologic - No headache. He has occasional dizziness with positional changes. No numbness or tingling. No other focal neurologic symptoms, Psychiatric - No anxiety or depression. He does not sleep well. Vital Signs: Performed on Mar 22, 2020 13:39 Height - 68.00 in Weight - 160.8 lbs (LOW) BSA - 1.86 sq.m BMI - 24.45 Temperature - 98.1 F (LOW) Pulse - 74 /min Respiration - 22 /min BP - 143/64 mm(hg) (HIGH) O2 Sat - 97 % Pain - 5 Physical Examination: Constitutional - He looks pretty good generally, Eyes - Sclerae nonicteric. Conjunctivae clear, ENMT - No lesions noted in the oral cavity, Hematologic/Lymphatic - No cervical, clavicular, or axillary adenopathy, Respiratory - Lungs sound clear, Cardiovascular - Heart rhythm appears regular. There is a II/ systolic murmur. There is no gallop or rub noted, Abdomen - Soft. Liver and spleen are not enlarged. 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 There is just mild edema of the left leg, Neurologic - There are no focal neurologic deficits noted. Lab/Imaging: Test performed on Mar 22, 2020 12:35 LDH (Total) 176 U/L Sodium 126 mmol/L Potassium 4.6 mmol/L Chloride 92 mmol/L CO2 21 mmol/L Anion Gap 17.6 BUN 40 mg/dL Creatinine 1.9 mg/dL Cr Clearance (Est) 30.3900 mL/min Glucose 147 mg/dL Calcium 9.7 mg/dL Protein, Total 7.7 g/dL Albumin 4.6 g/dL Globulin 3.1 g/dL Bilirubin, Total 0.2 mg/dL ALT (SGPT) 22 U/L AST (SGOT) 23 U/L Alkaline Phosphatase 106 IU/L WBC 7.8 10 3/uL RBC 3.23 10 6/uL HGB 11.3 g/dL HCT 33.3 % MCV 103.1 fL MCH 35.0 pg MCHC 33.9 g/dL RDW 15.0 % Platelet Count 249 10 3/cmm MPV 10.1 fL Neutrophils 4.76 10 3/uL Lymphocytes 1.9 10 3/uL Monocytes 0.8 10 3/uL Eosinophils 0.3 10 3/uL Basophils 0.1 10 3/uL Neutrophil % 60.8 % Lymphocyte % 24.4 % Monocyte % 9.8 % Eosinophil % 3.3 % Basophils % 0.9 % NRBC % 0 % Impression: 1. Patient has a Tuckerman chromosome positive chronic myeloid leukemia, initially diagnosed in August 2002. By PCR he had major molecular response on treatment with imatinib, which he had tolerated well. 2. He has a mild, chronic anemia. It is uncertain to what extent the anemia may be due to treatment or to the chronic kidney disease. It has been stable. His other medical illnesses include: 3. Hypertension. 4. Stage III chronic kidney disease. 5. He has degenerative disease of the spine. He had back surgery twice in 2013. 6. He underwent thoracic laminectomy with placement of spinal cord stimulator on 04/30/2017. His chronic myeloid leukemia has been in long-term remission on treatment with imatinib. He has had mild to moderately severe anemia, which I had assumed to be due to the imatinib. As of his follow-up visit on 03/30/2018 there was further decline in his hemoglobin to 9.4 g. At that point I did have him stop imatinib. His subsequent serum iron studies were suggestive of iron deficiency, and he then started an oral iron supplement. Following IV hydration in preparation for lower extremity arterial vascular procedure, there was a further drop in the hemoglobin to 7.1 g. As it appeared likely that at least some component of the anemia was due to iron deficiency, he was given an infusion of Injectafer. He experienced no acute toxicity with the infusion. However, 2 days later he presented to the emergency room with shortness of breath. He was found to be in atrial fibrillation, and his clinical evaluation was consistent with acute congestive heart failure. He was treated with IV Lasix and he was given a transfusion of 1 unit of PRBC. His blood count had renal function had subsequently stabilized, and he was able to complete the arterial stenting procedure to his right leg. He then had some improvement in his blood count and his renal function and there also was improvement in his clinical status. During subsequent follow-up his PCR for the BCR/abl fusion remained undetectable. 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 During follow-up he has continued to have mild to moderately severe anemia. It is presumed to be due to the chronic kidney disease. He restarted treatment with Procrit in May 2019. He has been showing a good response. He has ongoing problems related to his underlying cardiovascular disease, but his PCR has remained undetectable. Plan: He remians on observation/expectant management for the CML. His CBC will now be monitored every 2 weeks. He will continue Procrit as needed for the anemia with his target hemoglobin at 10g. I will see him again in 3 months. Signed By: David Vaughn M.D. <<Signature on File>>
[2020-03-27 12:55] LABS: P190 BCR ALB1 Not Detected; P210 BCR ALB1 Not Detected; Prior Results See Report
== END 2020-03-30 23:59 | disposition home or self-care (01) ==
LOC: ONCMED 06:50
PROVIDERS: PCP Family Medicine; Visit Provider Internal Medicine Medical Oncology
DX: Z08 Encounter for follow-up examination after completed treatment for malignant neoplasm (principal); C92.11 Chronic myeloid leukemia, BCR/ABL-positive, in remission; I12.9 Hypertensive chronic kidney disease with stage 1 through stage 4 chronic kidney disease, or unspecified chronic kidney disease; N18.3 Chronic kidney disease, stage 3 (moderate); D63.1 Anemia in chronic kidney disease; Z92.21 Personal history of antineoplastic chemotherapy
CPT/HCPCS: 36415; 80053; 81206; 83615; 85025; 99214

== ENCOUNTER 2020-04-20 08:45 | Outpatient (RCR) | payer MEDICARE, SELFPAY ==
[2020-04-20] MEDS: epoetin alfa 40,000 Unit/mL INJ (non-esrd, onc only) 40000 UNIT SUBCUT (10:54)
== END 2020-04-30 23:59 | disposition home or self-care (01) ==
LOC: ONCMED 08:45
PROVIDERS: PCP Family Medicine; Visit Provider Nurse Practitioner
DX: C92.11 Chronic myeloid leukemia, BCR/ABL-positive, in remission (principal); N18.3 Chronic kidney disease, stage 3 (moderate); D63.1 Anemia in chronic kidney disease; I10 Essential (primary) hypertension; E78.5 Hyperlipidemia, unspecified
CPT/HCPCS: 96372; J0885

== ENCOUNTER 2020-06-25 10:18 | Outpatient (CLI) | payer MEDICARE, SELFPAY ==
[2020-06-25] MEDS: epoetin alfa 40,000 Unit/mL INJ (non-esrd, onc only) 40000 UNIT SUBCUT (11:50)
== END 2020-06-25 10:19 | disposition home or self-care (01) ==
PROVIDERS: PCP Family Medicine; Visit Provider Nurse Practitioner
DX: N18.30 Chronic kidney disease, stage 3 unspecified (principal); D63.1 Anemia in chronic kidney disease; C92.11 Chronic myeloid leukemia, BCR/ABL-positive, in remission
CPT/HCPCS: 96372; J0885

== ENCOUNTER 2020-07-05 05:56 | Outpatient (CLI) | payer MEDICARE, SELFPAY ==
--- NOTE | 2020-07-07 17:07 | ONC FU_ITS ---
Dr. Vaughn Patient Follow-Up Note Patient: Oneil Hinson Unit #: [id number]: 1935 Dicatated By: David Vaughn M.D.Date of Visit:Jul 05, 2020 Onc Med Follow-up/Prog Note Chief Complaint: Chronic myeloid leukemia. History of Present Illness: This is an 85 year-old man with Bent chromosome positive chronic myeloid leukemia. The leukemia was initially diagnosed in August 2002. He had a very good response to treatment with imatinib. During followup his quantitative PCR studies for the BCR/abl fusion had remained undetectable, and he stopped the imatinib as of February 2018. His other medical illnesses have included hypertension, stage IV chronic kidney disease, and peripheral arterial disease. He has had a mild chronic anemia. In the past the anemia had been responsive to treatment with Procrit, but he eventually had been able to maintain an adequate hemoglobin level without it. He also has degenerative disease of the spine, and he underwent lumbar laminectomy for ruptured disc in October 2013. His symptoms initially improved, but then recurred. He underwent reexploration with bilateral L4-L5 hemilaminectomy laminectomy/discectomy/foraminectomy on 07/17/2014. On 04/30/2017 he underwent placement of a spinal cord stimulator, as he continued to have significant back pain. As of his follow-up visit on 12/28/2017 the quantitative PCR for BCR/abl remained undetectable. He was seen for a scheduled visit on 03/30/2018. At that point he had been showing some further decline in his activity tolerance. His hemoglobin was down to 9.5 g. I had recommended that he stop the imatinib. His subsequent serum iron studies showed low transferrin saturation at 16% with ferritin in the low normal range at 92 ng/mL. MMA level was normal. He started an oral iron supplement. On 04/13/2018 he was admitted to the hospital for IV hydration in preparation for a lower extremity arterial vascular procedure. His laboratory studies on 04/14/2018 showed creatinine down to 1.5 mg/dL. His hemoglobin, though, had dropped to 7.1 g. The procedure was abandoned, and he returned here for an infusion of Injectafer. He experienced no acute toxicity. However, on 04/16/2018 he presented to the emergency room with shortness of breath. He was found to be in atrial fibrillation. Chest x-ray showed new small bilateral pleural effusions with interval cardiomegaly and/or pericardial effusion. Echocardiogram showed normal left ventricular systolic function with estimated ejection fraction of 55%. There was grade 1/4 diastolic dysfunction. Overall, the findings were felt to be consistent with acute congestive failure. He was treated with IV Lasix and he was transfused 1 unit of PRBC. He was able to be discharged the following day. Several of his other medications were adjusted, including the Coreg and the aspirin. His repeat CBC on 04/18/2018 showed hemoglobin up to 10.5 g with white blood cell count 6400 and platelet count 144,000. He continued on close observation, and he eventually was able to complete the arterial stenting procedure to his right leg. During that time his blood counts remained adequate and his quantitative PCR for the BCR/abl fusion remainded undetectable. Unfortunately, during subsequent follow-up he continued to have evidence of arterial insufficiency to the right leg, and he ultimately underwent BK amputation in [place]. I had seen him for a follow-up visit on 12/09/2018. He was still mildly anemic, but it was PCR was undetectable, and he continued on observation/expectant management for the CML. During subsequent follow-up he had remained moderately anemic. As of May 2019 I opted to restart Procrit therapy with his target hemoglobin at 10 g. He has had a good response. As of February 2020 the PCR for BCR/abl remained undetectable. He is seen for a follow-up visit. He has been feeling pretty good generally. He still has limited activity, but he has been doing more walking, and he is able to do some light work. His ECOG score is 2. Appetite is good. He has no fever or night sweats. He is short of breath with activity. He does not complain of cough and he has not been having chest pain. He has no GI/ complaints other than some heartburn, but he did stop taking his antacid medication. He still has some back pain and he still has some pain in the lower extremities. His pain is being managed adequately with tramadol and medical marijuana. The marijuana also is helping him sleep better at night. He does not complain of headache, and he has no focal neurologic symptoms. Medications: AmLODIPine Besylate 10 mg (of 10 mg) Tablet Oral daily, Aspirin 1 (81 mg) Tablet Oral daily, Carvedilol 1 Tablet (of 25 mg) Oral b.i.d., Heartburn Relief 1 Tablet Oral b.i.d., hydrALAZINE HCl 1 Tablet (of 25 mg) Oral t.i.d., Magnesium Oxide 1 (400 mg) Capsule Oral daily, Multivitamin Adult 1 Tablet Oral daily, Prochlorperazine Maleate 10 mg (of 10 mg) Tablet Oral four times a day PRN, Rosuvastatin Calcium 1 Tablet (of 10 mg) Oral daily, Vitamin C 1 Tablet Oral daily Allergies: cortisone and ZOFRAN (ODT). Review of Systems: Constitutional - He generally feels pretty good, though he does have limited activity. He is walking more, and he is able to do some light work. His appetite is good and his weight is stable. No fever, night sweats, or hot flashes. ECOG score is 2, ENMT - No sinus congestion/drainage. No mouth sores. No sore throat or difficulty swallowing, Hematologic/Lymphatic - He bruises easily, Respiratory - He gets short of breath with activity. No cough. No pleuritic pain or hemoptysis, Cardiovascular - No angina pain. No palpitations, Gastrointestinal - No nausea or vomiting. He has intermittent heartburn. He did stop his anti-acids. No diarrhea or constipation. No blood in the stool or black stools, Genitourinary (M) - No dysuria or hematuria. No urinary frequency. No urgency or incontinence, Musculoskeletal - He has pain in his legs and back. He is using tramadol and medical marijuana for pain, Integumentary - No skin complications, Neurologic - No headache. He gets an off balance sensation with standing. No numbness or tingling. No other focal neurologic symptoms, Psychiatric - No anxiety or depression. The medical marijuana has been helping him sleep better. Vital Signs: Performed on Jul 05, 2020 10:43 Height - 68.00 in Weight - 169.0 lbs (HIGH) BSA - 1.90 sq.m BMI - 25.70 Temperature - 98.4 F Pulse - 69 /min Respiration - 22 /min BP - 154/61 mm(hg) (HIGH) O2 Sat - 98 % Pain - 4 Physical Examination: Constitutional - He looks pretty good generally, Eyes - Sclerae nonicteric. Conjunctivae clear, ENMT - No lesions noted in the oral cavity, Hematologic/Lymphatic - No cervical, clavicular, or axillary adenopathy, Respiratory - Lungs sound clear, Cardiovascular - Heart rhythm appears regular. There is a II/ systolic murmur. There is no gallop or rub noted, Abdomen - Soft. Liver and spleen are not enlarged. 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 There is no edema, Neurologic - There are no focal neurologic deficits noted. Lab/Imaging: Test performed on Jun 28, 2020 10:35 WBC 7.1 10^9/L RBC 2.99 10^12/L HGB 10.2 g/dL HCT 31.6 % MCV 105.7 fl MCH 34.1 pg MCHC 32.3 g/dL RDW 14.3 % Platelet Count 236 10^9/L Neutrophils (Gran) 5.25 10^9/L Lymphocytes .92 10^9/L Monocytes .67 10^9/L Eosinophils .18 10^9/L Basophils .05 10^9/L Test performed on Jun 14, 2020 07:39 Glucose 228 mg/dL BUN 31 mg/dL Creatinine 1.72 mg/dL BUN/Creatinine Ratio 18.0 Absolute Value Sodium 131 mmol/L Potassium 4.8 mmol/L Chloride 102 mmol/L CO2 21.7 mmol/L Calcium 8.7 mg/dL MPV 10.0 fL Manual Lymphocytes 14.4 % Manual Monocytes 10.8 % Manual Eosinophils 2.4 % Manual Basophils 0.6 % Impression: 1. Patient has a Bent chromosome positive chronic myeloid leukemia, initially diagnosed in August 2002. By PCR he had major molecular response on treatment with imatinib, which he had tolerated well. 2. He has a mild, chronic anemia. It is uncertain to what extent the anemia may be due to treatment or to the chronic kidney disease. It has been stable. His other medical illnesses include: 3. Hypertension. 4. Stage III chronic kidney disease. 5. He has degenerative disease of the spine. He had back surgery twice in 2013. 6. He underwent thoracic laminectomy with placement of spinal cord stimulator on 04/30/2017. His chronic myeloid leukemia has been in long-term remission on treatment with imatinib. He has had mild to moderately severe anemia, which I had assumed to be due to the imatinib. As of his follow-up visit on 03/30/2018 there was further decline in his hemoglobin to 9.4 g. At that point I did have him stop imatinib. His subsequent serum iron studies were suggestive of iron deficiency, and he then started an oral iron supplement. Following IV hydration in preparation for lower extremity arterial vascular procedure, there was a further drop in the hemoglobin to 7.1 g. As it appeared likely that at least some component of the anemia was due to iron deficiency, he was given an infusion of Injectafer. He experienced no acute toxicity with the infusion. However, 2 days later he presented to the emergency room with shortness of breath. He was found to be in atrial fibrillation, and his clinical evaluation was consistent with acute congestive heart failure. He was treated with IV Lasix and he was given a transfusion of 1 unit of PRBC. His blood count had renal function had subsequently stabilized, and he was able to complete the arterial stenting procedure to his right leg. He then had some improvement in his blood count and his renal function and there also was improvement in his clinical status. During subsequent follow-up his PCR for the BCR/abl fusion remained undetectable. 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 During follow-up he has continued to have mild to moderately severe anemia. It is presumed to be due to the chronic kidney disease. He restarted treatment with Procrit in May 2019. He has had a good response. He has had ongoing problems related to his underlying cardiovascular disease, and he continues to have some chronic pain. At this point his activity tolerance still remains limited, but he has continued to show gradual improvement following his amputation, and thus far there has been no evidence of recurrence of the CML. Plan: He remians on observation/expectant management for the CML. His CBC will now be monitored monthly, and he will continue Procrit as needed for the anemia with his target hemoglobin at 10g. I will see him again in 3 months. Signed By: David Vaughn M.D. <<Signature on File>>
== END 2020-07-05 05:57 | disposition home or self-care (01) ==
LOC: ONCMED 05:58
PROVIDERS: PCP Family Medicine; Visit Provider Internal Medicine Medical Oncology
DX: C92.11 Chronic myeloid leukemia, BCR/ABL-positive, in remission (principal); D63.1 Anemia in chronic kidney disease; I12.9 Hypertensive chronic kidney disease with stage 1 through stage 4 chronic kidney disease, or unspecified chronic kidney disease; N18.30 Chronic kidney disease, stage 3 unspecified; M47.9 Spondylosis, unspecified; Z96.82 Presence of neurostimulator
CPT/HCPCS: 99214

== ENCOUNTER 2020-11-01 09:49 | Outpatient (CLI) | payer MEDICARE, SELFPAY ==
--- NOTE | 2020-11-04 10:00 | ONC FU_ITS ---
Dr. Vaughn Patient Follow-Up Note Patient: Oneil Hinson Unit #: [id number]: 1935 Dicatated By: David Vaughn M.D.Date of Visit:Nov 01, 2020 Onc Med Follow-up/Prog Note Chief Complaint: Chronic myeloid leukemia. History of Present Illness: This is an 85 year-old man with [place] chromosome positive chronic myeloid leukemia. The leukemia was initially diagnosed in August 2002. He had a very good response to treatment with imatinib. During followup his quantitative PCR studies for the BCR/abl fusion had remained undetectable, and he stopped the imatinib as of February 2018. His other medical illnesses include hypertension, stage IV chronic kidney disease, type II diabetes, and peripheral arterial disease. He has had a mild chronic anemia. He also has degenerative disease of the spine, and he underwent lumbar laminectomy for ruptured disc in October 2013. His symptoms initially improved, but then recurred. He underwent reexploration with bilateral L4-L5 hemilaminectomy with discectomy/foraminectomy on 07/17/2014. On 04/30/2017 he underwent placement of a spinal cord stimulator, as he continued to have significant back pain. As of March 2018 he has become more significantly anemic, and at that time he also required treatment for congestive heart failure. During subsequent followup he underwent arterial stenting procedures to the right leg for the arterial insufficiency, and he ultimately underwent a BK amputation. He had then remained moderately anemic. As of May 2019 I opted to restart Procrit therapy with his target hemoglobin at 10 g. He has had a good response. As of February 2020 the PCR for BCR/abl remained undetectable. He is seen for a follow-up visit. He says that he has been feeling all right, though he has now been found to have diabetes, and since his last visit there has been some decline in his activity tolerance. His ECOG score is 3. He has been having pretty severe pain in his right leg above the knee. He describes it as a terrible ache and it bothers him the most when he elevates his leg in bed at night. He is scheduled to have an angiogram on his left leg next week. His appetite has been okay. His weight is down a few pounds. He does not have fever or night sweats. He does not complain of shortness of breath, cough, or chest pain. He does have occasional nausea. Bowel and bladder function have been okay. He continues to have some back pain, which is chronic. He does not complain of headache. He has very occasional orthostatic lightheadedness. He has no numbness/paresthesia or other focal neurologic symptoms. Medications: Aldactone 1 Tablet (of 50 mg) Oral daily, AmLODIPine Besylate 10 mg (of 10 mg) Tablet Oral daily, Aspirin 1 (81 mg) Tablet Oral daily, Bumetanide 1 Tablet (of 1 mg) Oral daily, Carvedilol 1 Tablet (of 25 mg) Oral b.i.d., Heartburn Relief 1 Tablet Oral b.i.d., hydrALAZINE HCl 1 Tablet (of 25 mg) Oral t.i.d., Isosorbide Dinitrate 1 Tablet (of 30 mg) Oral daily, Magnesium Oxide 1 (400 mg) Capsule Oral daily, Multivitamin Adult 1 Tablet Oral daily, Prochlorperazine Maleate 10 mg (of 10 mg) Tablet Oral four times a day PRN, Rosuvastatin Calcium 1 Tablet (of 10 mg) Oral daily, Vitamin C 1 Tablet Oral daily Allergies: cortisone and ZOFRAN (ODT). Vital Signs: Performed on Nov 01, 2020 10:07 Height - 68.00 in Weight - 165 lbs (LOW) BSA - 1.88 sq.m BMI - 25.09 Temperature - 96.6 F (LOW) Pulse - 70 /min Respiration - 16 /min BP - 115/57 mm(hg) O2 Sat - 97 % Pain - 5 Fatigue - 5 Physical Examination: Constitutional - He appears somewhat weak generally, Eyes - Sclerae nonicteric. Conjunctivae clear, ENMT - No lesions noted in the oral cavity, Hematologic/Lymphatic - No cervical, clavicular, or axillary adenopathy, Respiratory - Lungs sound clear, Cardiovascular - Heart rhythm appears regular. There is a II/ systolic murmur. There is no gallop or rub noted, Abdomen - Soft. Liver and spleen are not enlarged. 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 There is no edema, Neurologic - There are no focal neurologic deficits noted. Lab/Imaging: Test performed on Oct 25, 2020 07:39 WBC 7.4 10^9/L RBC 3.16 10^12/L HGB 10.9 g/dL HCT 32.2 % MCV 101.9 fl MCH 34.5 pg MCHC 33.9 g/dL RDW 50.7 % Platelet Count 292 10^9/L MPV 9.9 fL Neutrophils (Gran) 5.16 10^9/L Lymphocytes 1.05 10^9/L Monocytes 1.03 10^9/L Eosinophils .09 10^9/L Basophils .05 10^9/L Manual Lymphocytes 14.1 % Manual Monocytes 13.9 % Manual Eosinophils 1.2 % Manual Basophils 0.7 % Test performed on Jun 14, 2020 07:39 Glucose 228 mg/dL BUN 31 mg/dL Creatinine 1.72 mg/dL BUN/Creatinine Ratio 18.0 Absolute Value Sodium 131 mmol/L Potassium 4.8 mmol/L Chloride 102 mmol/L CO2 21.7 mmol/L Calcium 8.7 mg/dL Problem List: 1. [place] chromosome positive chronic myeloid leukemia, initially diagnosed in August 2002. By PCR he had major molecular response on treatment with imatinib, which he had tolerated well. 2. He has a mild, chronic anemia. It is presumed to be due to underlying chronic kidney disease. 3. Hypertension. 4. Stage III chronic kidney disease. 5. Type 2 diabetes. 6. Peripheral arterial disease. He is status post BK amputation of the right leg. 7. He has degenerative disease of the spine. He had back surgery twice in 2013. 8. He underwent thoracic laminectomy with placement of spinal cord stimulator on 04/30/2017. Problems Addressed with this Encounter and Plan: 1. Patient has a [place] chromosome positive chronic myeloid leukemia, initially diagnosed in August 2002. By PCR he had major molecular response on treatment with imatinib, which he had tolerated well. His chronic myeloid leukemia had been in long-term remission on treatment with the imatinib. The imatinib was stopped as of his follow-up visit on 03/30/2018. Thus far during follow-up there has been no evidence of recurrence of the CML. His quantitative PCR will be repeated with his next lab draw. As long as it remains undetectable, he will remain on observation/expectant management, and I will continue to monitor the PCR every 3 months. I will tentatively plan a follow-up visit in 4 months. 2. He has had a chronic mild anemia. This did not improve after stopping the imatinib. It appears most likely to be associated with the underlying chronic kidney disease. It has been responsive to treatment with an erythropoietin stimulating agent. I will continue to monitor his CBC monthly, and he will be treated with Procrit as needed with his target hemoglobin at 10 g. Signed By: David Vaughn M.D. <<Signature on File>>
== END 2020-11-01 09:50 | disposition home or self-care (01) ==
LOC: ONCMED 09:52
PROVIDERS: PCP Family Medicine; Visit Provider Internal Medicine Medical Oncology
DX: C92.10 Chronic myeloid leukemia, BCR/ABL-positive, not having achieved remission (principal); E11.22 Type 2 diabetes mellitus with diabetic chronic kidney disease; I12.9 Hypertensive chronic kidney disease with stage 1 through stage 4 chronic kidney disease, or unspecified chronic kidney disease; N18.30 Chronic kidney disease, stage 3 unspecified; D63.1 Anemia in chronic kidney disease; E11.51 Type 2 diabetes mellitus with diabetic peripheral angiopathy without gangrene; M47.9 Spondylosis, unspecified; Z79.899 Other long term (current) drug therapy; Z96.82 Presence of neurostimulator
CPT/HCPCS: 99214

== ENCOUNTER 2021-03-08 10:50 | Outpatient (CLI) | payer MEDICARE, SELFPAY | END 2021-03-08 10:51 | disposition home or self-care (01) | PROVIDERS: PCP Family Medicine; Visit Provider Internal Medicine Medical Oncology | DX: C92.11 Chronic myeloid leukemia, BCR/ABL-positive, in remission (principal); I12.9 Hypertensive chronic kidney disease with stage 1 through stage 4 chronic kidney disease, or unspecified chronic kidney disease; E11.22 Type 2 diabetes mellitus with diabetic chronic kidney disease; N18.30 Chronic kidney disease, stage 3 unspecified; D63.1 Anemia in chronic kidney disease; I70.209 Unspecified atherosclerosis of native arteries of extremities, unspecified extremity; Z89.511 Acquired absence of right leg below knee; M47.9 Spondylosis, unspecified; Z79.899 Other long term (current) drug therapy | CPT/HCPCS: 96372; Q4081 ==

== ENCOUNTER 2021-03-14 06:14 | Outpatient (CLI) | payer MEDICARE, SELFPAY ==
--- NOTE | 2021-03-18 06:01 | ONC FU_ITS ---
Dr. Vaughn Patient Follow-Up Note Patient: Oneil Hinson Unit #: [id number]: 1935 Dicatated By: David Vaughn M.D.Date of Visit:Mar 14, 2021 Onc Med Follow-up/Prog Note Chief Complaint: Chronic myeloid leukemia. History of Present Illness: This is an 86 year-old man with [place] chromosome positive chronic myeloid leukemia. The leukemia was initially diagnosed in August 2002. He had a very good response to treatment with imatinib. During followup his quantitative PCR studies for the BCR/abl fusion had remained undetectable, and he stopped the imatinib as of February 2018. His other medical illnesses include hypertension, stage IV chronic kidney disease, type II diabetes, and peripheral arterial disease. He has had a mild chronic anemia. He also has degenerative disease of the spine, and he underwent lumbar laminectomy for ruptured disc in October 2013. His symptoms initially improved, but then recurred. He underwent reexploration with bilateral L4-L5 hemilaminectomy with discectomy/foraminectomy on 07/17/2014. On 04/30/2017 he underwent placement of a spinal cord stimulator, as he continued to have significant back pain. As of March 2018 he has become more significantly anemic, and at that time he also required treatment for congestive heart failure. During subsequent followup he underwent arterial stenting procedures to the right leg for the arterial insufficiency, and he ultimately underwent a BK amputation. He remained moderately anemic. As of May 2019 I opted to restart Procrit therapy with his target hemoglobin at 10 g. He has had a good response. As of November 2020 his PCR for BCR/abl remained undetectable. He is seen for a follow-up visit. He has not been doing his well lately, as he has had more difficulty with ambulation due to left knee pain. His activity is very limited. ECOG score is 3. He has good appetite. He has no fever or night sweats. He has not had sore throat or difficulty swallowing. He sometimes has shortness of breath. He does not complain of cough and he has not been having chest pain. He has no GI/ complaints other than some chronic constipation. He has chronic back pain, which is unchanged. He does not complain of headache, and he has no focal neurologic symptoms. Medications: Aldactone 1 Tablet (of 50 mg) Oral daily, AmLODIPine Besylate 10 mg (of 10 mg) Tablet Oral daily, Aspirin 1 (81 mg) Tablet Oral daily, Bumetanide 1 Tablet (of 1 mg) Oral daily, Carvedilol 1 Tablet (of 25 mg) Oral b.i.d., Heartburn Relief 1 Tablet Oral b.i.d., hydrALAZINE HCl 1 Tablet (of 25 mg) Oral t.i.d., Isosorbide Dinitrate 1 Tablet (of 30 mg) Oral daily, Magnesium Oxide 1 (400 mg) Capsule Oral daily, Multivitamin Adult 1 Tablet Oral daily, Prochlorperazine Maleate 10 mg (of 10 mg) Tablet Oral four times a day PRN, Rosuvastatin Calcium 1 Tablet (of 10 mg) Oral daily, Vitamin C 1 Tablet Oral daily Allergies: cortisone and ZOFRAN (ODT). Vital Signs: Performed on Mar 14, 2021 15:42 Height - 68.00 in Weight - 161.6 lbs (LOW) BSA - 1.87 sq.m BMI - 24.57 Temperature - 97.6 F (LOW) Pulse - 75 /min Respiration - 18 /min BP - 126/57 mm(hg) O2 Sat - 96 % Pain - 5 Fatigue - 0 Physical Examination: Constitutional - He appears somewhat weak generally, Eyes - Sclerae nonicteric. Conjunctivae clear, ENMT - No lesions noted in the oral cavity, Hematologic/Lymphatic - No cervical, clavicular, or axillary adenopathy, Respiratory - Lungs sound clear, Cardiovascular - Heart rhythm appears irregular. There is a II/ systolic murmur. There is no gallop or rub noted, Abdomen - Soft. Liver and spleen are not enlarged. 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 The left leg shows mild edema, Neurologic - There are no focal neurologic deficits noted. Lab/Imaging: Test performed on Mar 07, 2021 06:52 Glucose 152 mg/dL BUN 47 mg/dL Creatinine 2.46 mg/dL Cr Clearance (Est) 24.09 mL/min Sodium 136 mmol/L Potassium 4.7 mmol/L Chloride 105 mmol/L CO2 26.1 mmol/L Calcium 9.0 mg/dL Protein, Total 7.5 g/dL Albumin 3.8 g/dL Globulin 3.7 g/dL Bilirubin, Total .4 mg/dL Alkaline Phosphatase 72 IU/L AST (SGOT) 9 IU/L ALT (SGPT) 17 IU/L WBC 7.6 10^9/L RBC 2.90 10^12/L HGB 9.8 g/dL HCT 29.8 % MCV 102.8 fl MCH 33.8 pg MCHC 32.9 g/dL RDW 15.2 % Platelet Count 254 10^9/L MPV 10.0 fL Neutrophils (Gran) 5.09 10^9/L Lymphocytes 1.32 10^9/L Monocytes .90 10^9/L Eosinophils .17 10^9/L Basophils .07 10^9/L Manual Lymphocytes 17.4 % Manual Monocytes 11.9 % Manual Eosinophils 2.2 % Manual Basophils 0.9 % Problem List: 1. [place] chromosome positive chronic myeloid leukemia, initially diagnosed in August 2002. By PCR he had major molecular response on treatment with imatinib, which he had tolerated well. 2. He has a mild, chronic anemia. It is presumed to be due to underlying chronic kidney disease. 3. Hypertension. 4. Stage III chronic kidney disease. 5. Type 2 diabetes. 6. Peripheral arterial disease. He is status post BK amputation of the right leg. 7. He has degenerative disease of the spine. He had back surgery twice in 2013. 8. He underwent thoracic laminectomy with placement of spinal cord stimulator on 04/30/2017. Problems Addressed with this Encounter and Plan: 1. Patient with [place] chromosome positive chronic myeloid leukemia, initially diagnosed in August 2002. By PCR he had major molecular response on treatment with imatinib, which he had tolerated well. His chronic myeloid leukemia had been in long-term remission on treatment with the imatinib. The imatinib was stopped as of his follow-up visit on 03/30/2018. Thus far during follow-up there has been no evidence of recurrence of the CML. The results of his current PCR study are pending. Assuming it remains undetectable, he will remain on expectant management. I will tentatively plan for a followup visit with quantitative PCR in 3 months. 2. He has chronic mild anemia which did not improve after stopping the imatinib. It appears most likely to be associated with the underlying chronic kidney disease. It has been responsive to treatment with an erythropoietin stimulating agent. I will continue to monitor his CBC monthly, and he will be treated with Procrit as needed with his target hemoglobin at 10 g. Signed By: David Vaughn M.D. <<Signature on File>>
== END 2021-03-14 06:15 | disposition home or self-care (01) ==
LOC: ONCMED 06:18
PROVIDERS: PCP Family Medicine; Visit Provider Internal Medicine Medical Oncology
DX: C92.11 Chronic myeloid leukemia, BCR/ABL-positive, in remission (principal); D64.9 Anemia, unspecified; I12.9 Hypertensive chronic kidney disease with stage 1 through stage 4 chronic kidney disease, or unspecified chronic kidney disease; E11.22 Type 2 diabetes mellitus with diabetic chronic kidney disease; N18.30 Chronic kidney disease, stage 3 unspecified; I70.209 Unspecified atherosclerosis of native arteries of extremities, unspecified extremity; Z89.511 Acquired absence of right leg below knee; M47.9 Spondylosis, unspecified; Z79.899 Other long term (current) drug therapy
CPT/HCPCS: 99214

== ENCOUNTER 2021-04-10 13:57 | Outpatient (CLI) | payer MEDICARE, SELFPAY | END 2021-04-10 13:58 | disposition home or self-care (01) | LOC: ONCMED 14:02 | PROVIDERS: PCP Family Medicine; Visit Provider Internal Medicine Medical Oncology | DX: C92.11 Chronic myeloid leukemia, BCR/ABL-positive, in remission (principal); E11.22 Type 2 diabetes mellitus with diabetic chronic kidney disease; N18.30 Chronic kidney disease, stage 3 unspecified; D63.1 Anemia in chronic kidney disease; I12.9 Hypertensive chronic kidney disease with stage 1 through stage 4 chronic kidney disease, or unspecified chronic kidney disease; Z79.899 Other long term (current) drug therapy | CPT/HCPCS: 96372; Q4081 ==

== ENCOUNTER 2021-06-12 11:47 | Outpatient (CLI) | payer MEDICARE, SELFPAY ==
[2021-06-12] MEDS: epoetin alfa 40,000 Unit/mL INJ (non-esrd, onc only) 40000 UNIT SUBCUT (12:45)
== END 2021-06-12 11:48 | disposition home or self-care (01) ==
LOC: ONCMED 11:50
PROVIDERS: PCP Family Medicine; Visit Provider Nurse Practitioner
DX: C92.10 Chronic myeloid leukemia, BCR/ABL-positive, not having achieved remission (principal); E11.22 Type 2 diabetes mellitus with diabetic chronic kidney disease; I12.9 Hypertensive chronic kidney disease with stage 1 through stage 4 chronic kidney disease, or unspecified chronic kidney disease; N18.4 Chronic kidney disease, stage 4 (severe); D63.1 Anemia in chronic kidney disease; Z79.899 Other long term (current) drug therapy
CPT/HCPCS: 96372; J0885

== ENCOUNTER 2021-07-02 08:46 | Outpatient (CLI) | payer MEDICARE, SELFPAY ==
--- NOTE | 2021-07-03 06:05 | ONC FU_ITS ---
Dr. Vaughn Patient Follow-Up Note Patient: Oneil Hinson Unit #: [id number]: [id number] Dicatated By: David Vaughn M.D.Date of Visit:Jul 02, 2021 Onc Med Follow-up/Prog Note Chief Complaint: Chronic myeloid leukemia. History of Present Illness: This is an 86 year-old man with Osborne chromosome positive chronic myeloid leukemia. The leukemia was initially diagnosed in August 2002. He had a very good response to treatment with imatinib. During followup his quantitative PCR studies for the BCR/abl fusion had remained undetectable, and he stopped the imatinib as of February 2018. His other medical illnesses include hypertension, stage IV chronic kidney disease, type II diabetes, and peripheral arterial disease. He has had a mild chronic anemia. He also has degenerative disease of the spine, and he underwent lumbar laminectomy for ruptured disc in October 2013. His symptoms initially improved, but then recurred. He underwent reexploration with bilateral L4-L5 hemilaminectomy with discectomy/foraminectomy on 07/17/2014. On 04/30/2017 he underwent placement of a spinal cord stimulator, as he continued to have significant back pain. As of March 2018 he has become more significantly anemic, and at that time he also required treatment for congestive heart failure. During subsequent followup he underwent arterial stenting procedures to the right leg for the arterial insufficiency, and he ultimately underwent a BK amputation. He remained moderately anemic. As of May 2019 I opted to restart Procrit therapy with his target hemoglobin at 10 g. He has had a good response. As of February 2021 his PCR for BCR/abl remained undetectable. He is seen for a follow-up visit. He has been feeling okay. He still has limited activity, but he has been up walking better and he has been up and around more. ECOG score is 2. He has good appetite. He has no fever or night sweats. He has not had sore mouth or throat. His breathing lately has been a little tight. He does not complain of cough and he has not been having chest pain. He has no GI/ complaints other than mild constipation, which he manages with a laxative as needed. He has some arthritis pain, but is back pain lately has been better. He does not complain of headache or dizziness, and he has no focal neurologic symptoms. Medications: Aldactone 1 Tablet (of 50 mg) Oral daily, AmLODIPine Besylate 10 mg (of 10 mg) Tablet Oral daily, Aspirin 1 (81 mg) Tablet Oral daily, Bumetanide 1 Tablet (of 1 mg) Oral daily, Carvedilol 1 Tablet (of 25 mg) Oral b.i.d., Clopidogrel Bisulfate 1 Tablet (of 75 mg) Oral daily, Gabapentin 1 Tablet (of 100 mg) Capsule Oral at bedtime, Heartburn Relief 1 Tablet Oral b.i.d., hydrALAZINE HCl 1 Tablet (of 25 mg) Oral t.i.d., Isosorbide Dinitrate 1 Tablet (of 30 mg) Oral daily, Magnesium Oxide 1 (400 mg) Capsule Oral daily, Multivitamin Adult 1 Tablet Oral daily, Rosuvastatin Calcium 1 Tablet (of 10 mg) Oral daily, Vitamin C 1 Tablet Oral daily Allergies: cortisone and ZOFRAN (ODT). Vital Signs: Performed on Jul 02, 2021 09:32 Height - 68.00 in Weight - 155.6 lbs (LOW) BSA - 1.84 sq.m BMI - 23.66 Temperature - 96.4 F (LOW) Pulse - 77 /min Respiration - 18 /min BP - 149/69 mm(hg) (HIGH) O2 Sat - 96 % Pain - 3 Fatigue - 5 Physical Examination: Constitutional - He looks pretty good generally, Eyes - Sclerae nonicteric. Conjunctivae clear, ENMT - No lesions noted in the oral cavity, Hematologic/Lymphatic - No cervical, clavicular, or axillary adenopathy, Respiratory - Lungs sound clear, Cardiovascular - Heart rhythm appears irregular. There is a II/ systolic murmur. There is no gallop or rub noted, Abdomen - Soft. Liver and spleen are not enlarged. 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 The left leg shows mild edema, Neurologic - No focal neurologic deficits noted. Lab/Imaging: Test performed on Jun 10, 2021 14:29 Glucose 140 mg/dL BUN 37 mg/dL Creatinine 1.82 mg/dL Cr Clearance (Est) 31.33 mL/min BUN/Creatinine Ratio 20.3 Absolute Value Sodium 133 mmol/L Potassium 3.9 mmol/L Chloride 101 mmol/L CO2 25.3 mmol/L Calcium 9.3 mg/dL Protein, Total 7.7 g/dL Albumin 3.9 g/dL Globulin 3.8 g/dL A/G Ratio 1.0 Absolute Value Bilirubin, Total 0.4 mg/dL Alkaline Phosphatase 82 International Units/L AST (SGOT) 17 International Units/L ALT (SGPT) 20 International Units/L WBC 10.2 10^9/L RBC 2.91 10^12/L HGB 9.7 g/dL HCT 29.2 % MCV 100.3 fl MCH 33.3 pg MCHC 33.2 g/dL RDW 15.0 % Platelet Count 234 10^9/L MPV 9.9 fL Neutrophils (Gran) 8.33 10^9/L Lymphocytes 0.82 10^9/L Monocytes 0.93 10^9/L Eosinophils 0.07 10^9/L Basophils 0.04 10^9/L Manual Lymphocytes 8.0 % Manual Monocytes 9.1 % Manual Eosinophils 0.7 % Manual Basophils 0.4 % NRBCs 0.00 /100 WBC Test performed on Jun 10, 2021 08:24 Manual Segs 81.3 % Problem List: 1. Osborne chromosome positive chronic myeloid leukemia, initially diagnosed in August 2002. By PCR he had major molecular response on treatment with imatinib, which he had tolerated well. 2. He has a mild, chronic anemia. It is presumed to be due to underlying chronic kidney disease. 3. Hypertension. 4. Stage III chronic kidney disease. 5. Type 2 diabetes. 6. Peripheral arterial disease. He is status post BK amputation of the right leg. 7. He has degenerative disease of the spine. He had back surgery twice in 2013. 8. He underwent thoracic laminectomy with placement of spinal cord stimulator on 04/30/2017. Problems Addressed with this Encounter and Plan: 1. Patient with Osborne chromosome positive chronic myeloid leukemia, initially diagnosed in August 2002. By PCR he had major molecular response on treatment with imatinib, which he had tolerated well. His chronic myeloid leukemia had been in long-term remission on treatment with the imatinib. The imatinib was stopped as of his follow-up visit on 03/30/2018. Thus far during follow-up there has been no evidence of recurrence of the CML. His overall clinical status at this point appears stable. The current PCR results are pending. As long as it remains undetectable, I will just plan to see him for a follow-up visit in 3 months. 2. He has chronic mild anemia which did not improve after stopping the imatinib. It appears most likely to be associated with the underlying chronic kidney disease. It has been responsive to treatment with an erythropoietin stimulating agent. I will continue to monitor his CBC monthly, and he will be treated with Procrit as needed with his target hemoglobin at 10 g. Signed By: David Vaughn M.D. <<Signature on File>>
== END 2021-07-02 08:47 | disposition home or self-care (01) ==
LOC: ONCMED 08:48
PROVIDERS: PCP Family Medicine; Visit Provider Internal Medicine Medical Oncology
DX: C92.11 Chronic myeloid leukemia, BCR/ABL-positive, in remission (principal); D64.9 Anemia, unspecified; N18.9 Chronic kidney disease, unspecified; I10 Essential (primary) hypertension; E11.9 Type 2 diabetes mellitus without complications; I73.9 Peripheral vascular disease, unspecified; Z79.899 Other long term (current) drug therapy; M47.9 Spondylosis, unspecified
CPT/HCPCS: 99214

== ENCOUNTER 2021-08-05 11:07 | Outpatient (CLI) | payer MEDICARE, SELFPAY ==
[2021-08-05] MEDS: epoetin alfa 40,000 Unit/mL INJ (non-esrd, onc only) 40000 UNIT SUBCUT (11:45)
== END 2021-08-05 11:08 | disposition home or self-care (01) ==
LOC: ONCMED 11:09
PROVIDERS: PCP Family Medicine; Visit Provider Internal Medicine Medical Oncology
DX: C92.11 Chronic myeloid leukemia, BCR/ABL-positive, in remission (principal); D63.1 Anemia in chronic kidney disease; N18.32 Chronic kidney disease, stage 3b; I12.9 Hypertensive chronic kidney disease with stage 1 through stage 4 chronic kidney disease, or unspecified chronic kidney disease; E11.22 Type 2 diabetes mellitus with diabetic chronic kidney disease; Z79.899 Other long term (current) drug therapy
CPT/HCPCS: 96372; J0885

== ENCOUNTER 2021-10-10 10:10 | Outpatient (CLI) | payer MEDICARE, SELFPAY | END 2021-10-10 10:11 | disposition home or self-care (01) | PROVIDERS: PCP Family Medicine; Visit Provider Nurse Practitioner Family | DX: C91.10 Chronic lymphocytic leukemia of B-cell type not having achieved remission (principal); I12.9 Hypertensive chronic kidney disease with stage 1 through stage 4 chronic kidney disease, or unspecified chronic kidney disease; E11.22 Type 2 diabetes mellitus with diabetic chronic kidney disease; N18.32 Chronic kidney disease, stage 3b; D63.1 Anemia in chronic kidney disease; E11.59 Type 2 diabetes mellitus with other circulatory complications; I73.9 Peripheral vascular disease, unspecified; G31.89 Other specified degenerative diseases of nervous system; Z79.899 Other long term (current) drug therapy | CPT/HCPCS: 96372; 99215; Q4081 ==

== ENCOUNTER 2021-11-07 11:56 | Outpatient (CLI) | payer MEDICARE, SELFPAY ==
[2021-11-07] MEDS: epoetin alfa 40,000 Unit/mL INJ (non-esrd, onc only) 40000 UNIT SUBCUT (12:45)
== END 2021-11-07 11:57 | disposition home or self-care (01) ==
PROVIDERS: PCP Family Medicine; Visit Provider Internal Medicine Medical Oncology
DX: E11.22 Type 2 diabetes mellitus with diabetic chronic kidney disease (principal); N18.4 Chronic kidney disease, stage 4 (severe); D63.1 Anemia in chronic kidney disease; I12.9 Hypertensive chronic kidney disease with stage 1 through stage 4 chronic kidney disease, or unspecified chronic kidney disease; Z79.899 Other long term (current) drug therapy; Z87.891 Personal history of nicotine dependence
CPT/HCPCS: 96372; J0885

== ENCOUNTER 2022-01-01 11:56 | Outpatient (CLI) | payer MEDICARE, SELFPAY ==
[2022-01-01 13:00] LABS: Basophils # 0.1 10^3/uL (0.0-0.1); Eosinophils # 0.1 10^3/uL (0.0-0.8); Eosinophils % 2.2 %; Hematocrit 30.4 % (42.0-52.0); Hemoglobin 9.9 g/dL (11.7-16.6); Lymphocytes # 1.2 10^3/uL (0.8-4.8); Mean Corpuscular HGB Conc 32.6 g/dL (30.0-36.0); Mean Corpuscular Hemoglobin 33.2 pg (28.0-34.0); Mean Platelet Volume 10.6 fL (7.4-10.4); Monocytes # 0.8 10^3/uL (0.2-0.9); Monocytes % 13.7 %; Neutrophils # 3.76 10^3/uL (1.8-7.7); Neutrophils % 62.8 %; Nucleated Red Blood Cells % 0 %; Platelet Count 219 10^3/cmm (130-400); Red Blood Count 2.98 10^6/uL (4.1-5.3); Red Cell Distribution Width 15.6 % (12.1-15.1)
[2022-01-01 13:22] LABS: Alanine Aminotransferase 11 U/L (0-41); Albumin Level 4.5 g/dL (3.5-5.2); Alkaline Phosphatase 100 IU/L (40-130); Anion Gap 18.1 (5-19); Aspartate Amino Transferase 19 U/L (0-40); Blood Urea Nitrogen 53 mg/dL (8-23); Calcium 9.6 mg/dL (8.5-10.5); Carbon Dioxide 23 mmol/L (22-29); Chloride 99 mmol/L (98-107); Globulin 2.7 g/dL (1.3-4.6); Glucose 129 mg/dL (65-115); Osmolality Calculated 298 mOsm/kg (285-295); Potassium 4.1 mmol/L (3.5-5.1); Sodium 136 mmol/L (136-145); Total Bilirubin 0.3 mg/dL (0.15-1.2); Total Protein 7.2 g/dL (6.6-8.7)
[2022-01-06 22:06] LABS: P190 BCR ALB1 NOT DETECTED; P210 BCR ALB1 NOT DETECTED; Prior Results NG; Source Blood
== END 2022-01-01 11:57 | disposition home or self-care (01) ==
PROVIDERS: PCP Family Medicine; Visit Provider Nurse Practitioner Family
DX: C92.11 Chronic myeloid leukemia, BCR/ABL-positive, in remission (principal); D63.1 Anemia in chronic kidney disease; N18.30 Chronic kidney disease, stage 3 unspecified
CPT/HCPCS: 80053; 81206; 85025

== ENCOUNTER 2022-01-13 11:33 | Oncology outpatient (recurring) (ONCR) | payer MEDICARE, SELFPAY ==
[2022-01-01] MEDS: epoetin alfa 40,000 Unit/mL INJ (non-esrd, onc only) 40000 UNIT SUBCUT (14:15)
== END 2022-01-28 23:59 | disposition home or self-care (01) ==
PROVIDERS: PCP Family Medicine; Visit Provider Internal Medicine Medical Oncology
DX: C92.11 Chronic myeloid leukemia, BCR/ABL-positive, in remission (principal); N18.4 Chronic kidney disease, stage 4 (severe); D63.1 Anemia in chronic kidney disease; Z87.891 Personal history of nicotine dependence; Z79.899 Other long term (current) drug therapy; Z92.25 Personal history of immunosuppression therapy
CPT/HCPCS: 80053; 81206; 85025; 96372; 99214; 99999; J0885

== ENCOUNTER 2022-03-31 12:09 | Oncology outpatient (recurring) (ONCR) | payer MEDICARE, SELFPAY ==
[2022-03-31 13:36] LABS: Basophils % 0.6 %; Eosinophils # 0.2 10^3/uL (0.0-0.8); Eosinophils % 2.5 %; Hematocrit 27.5 % (42.0-52.0); Lymphocytes # 1.3 10^3/uL (0.8-4.8); Lymphocytes % 19.7 %; Mean Corpuscular HGB Conc 32.7 g/dL (30.0-36.0); Mean Corpuscular Hemoglobin 35.4 pg (28.0-34.0); Mean Corpuscular Volume 108.3 fl (80-94); Mean Platelet Volume 10.4 fL (7.4-10.4); Monocytes # 0.8 10^3/uL (0.2-0.9); Monocytes % 12.7 %; Neutrophils # 4.14 10^3/uL (1.8-7.7); Neutrophils % 64.2 %; Nucleated Red Blood Cells % 0 %; Platelet Count 211 10^3/cmm (130-400); Red Blood Count 2.54 10^6/uL (4.1-5.3); Red Cell Distribution Width 15.3 % (12.1-15.1); White Blood Count 6.5 10^3/uL (4.0-10.0)
[2022-03-31 14:10] LABS: Alanine Aminotransferase 10 U/L (0-41); Albumin Level 4.1 g/dL (3.5-5.2); Alkaline Phosphatase 84 IU/L (40-130); Anion Gap 15.7 (5-19); Aspartate Amino Transferase 18 U/L (0-40); Blood Urea Nitrogen 45 mg/dL (8-23); Calcium 9.4 mg/dL (8.5-10.5); Carbon Dioxide 24 mmol/L (22-29); Chloride 102 mmol/L (98-107); Glucose 98 mg/dL (65-115); Lactate Dehydrogenase 243 U/L (135-225); Osmolality Calculated 296 mOsm/kg (285-295); Potassium 4.7 mmol/L (3.5-5.1); Sodium 137 mmol/L (136-145); Total Bilirubin 0.2 mg/dL (0.15-1.2); Total Protein 7.1 g/dL (6.6-8.7)
[2022-04-04 23:08] LABS: P190 BCR ALB1 NOT DETECTED; P210 BCR ALB1 NOT DETECTED; Prior Results NG; Source blood
== END 2022-04-30 23:59 | disposition home or self-care (01) ==
PROVIDERS: PCP Family Medicine; Visit Provider Internal Medicine Medical Oncology
DX: C92.11 Chronic myeloid leukemia, BCR/ABL-positive, in remission (principal); N18.4 Chronic kidney disease, stage 4 (severe); D63.1 Anemia in chronic kidney disease; I12.9 Hypertensive chronic kidney disease with stage 1 through stage 4 chronic kidney disease, or unspecified chronic kidney disease; Z79.899 Other long term (current) drug therapy; Z87.891 Personal history of nicotine dependence
CPT/HCPCS: 36415; 80053; 81206; 83615; 85025; 99214

== ENCOUNTER 2022-07-29 11:18 | Oncology outpatient (recurring) (ONCR) | payer MEDICARE, SELFPAY | END 2022-07-30 23:59 | disposition home or self-care (01) | PROVIDERS: PCP Family Medicine; Visit Provider Internal Medicine Medical Oncology | DX: Z08 Encounter for follow-up examination after completed treatment for malignant neoplasm (principal); Z85.6 Personal history of leukemia; Z92.25 Personal history of immunosuppression therapy; Z87.891 Personal history of nicotine dependence | CPT/HCPCS: 99213; 99214 ==